=== PATIENT | female | born 1975 | race Caucasian/White ===

== ENCOUNTER 2017-01-01 08:55 | Inpatient (IN) | payer OTHER ==
[2017-01-01 09:38] LABS: Hematocrit 35.6 % (36.0-47.0); Mean Platelet Volume 8.3 fL (7.4-10.4); White Blood Cell (WBC) Count 6.6 thou/uL (4.8-10.8)
[2017-01-01 09:48] LABS: ALT (SGPT) 557 U/L (8-55); AST (SGOT) 1062 U/L (5-34); Alkaline Phosphatase 99 U/L (40-150); Anion Gap 18 mmol/L (10-20); BUN (Urea Nitrogen) 19 mg/dL (7.0-18.7); Bilirubin, Total 1.3 mg/dL (0.2-1.2); CK (CPK) 310 U/L (29-168); Calc. Creatinine Clearance 0 mL/min (70-130); Calcium 7.4 mg/dL (7.8-10.44); Carbon Dioxide 12 mmol/L (22-29); Chloride 102 mmol/L (98-107); Estimated GFR-MDRD 18; Globulin 2.2 g/dL (2.4-3.5); Protein, Total 5.3 g/dL (6.0-8.3)
--- NOTE | 2017-01-01 09:50 | RAD ---
PORTABLE CHEST 1 VIEW: Date: 01/01/17 Time: 0925 hours HISTORY: Fever, hypoxia, shortness of breath. FINDINGS/IMPRESSION: The heart size is borderline. There is elevation of the right hemidiaphragm. There is a small opacit y in the left lower lung. No pneumothoraces or pleural effusions are seen. A follow-up exam is recom mended in 2 weeks. POS: [facility]
[2017-01-01 09:52] LABS: Troponin I Less than 0.010 ng/mL (< 0.028)
[2017-01-01] MEDS ORDERED: Dextrose 50% Abboject 50 ML SYRINGE ONE (09:53)
[2017-01-01 09:56] LABS: Band 59 % (5-11); Metamyelocyte 8 % (0-0); Myelocyte 2 % (0-0); Neutrophil 22 % (42-75); Polychromasia SLIGHT = 2-3 cells (100X) (0-2/hpf); Vacuoles MODERATE
[2017-01-01] MEDS ORDERED: Norepinephrine 8 MG/0.9% NS 250 ML ONE (10:01)
[2017-01-01 10:22] LABS: Anion Gap 16 mmol/L (-14-95); T. Carbon Dioxide 13.1 mmol/L (1.0-85.0); pH (Venous) 7.159 (7.35-7.45); vO2 Saturation-calc 86.2 % (0.0-100.0)
[2017-01-01 10:36] LABS: Critical Call POC Critical Value; Lactate 5.57 mmol/L (0.50-2.20)
[2017-01-01 10:42] LABS: Oxyhemoglobin 95.4 % (94.0-97.0)
[2017-01-01 10:43] LABS: Modified Allen's Test NOT DONE; Sodium 128 mmol/L (135-148); Vent NO
--- NOTE | 2017-01-01 10:45 | CT ---
CT ABDOMEN NONCONTRAST CT PELVIS NONCONTRAST: (urolithiasis protocol) DATE: 01/01/2017 HISTORY: A 41-year-old female with fever, generalized abdominal pain, nausea, and emesis. COMPARISON: None. TECHNIQUE: IV injection of iodinated contrast media: none Oral contrast media: none FINDINGS: Other than for urolithiasis, the lack of IV and oral contrast limits the evaluation. There are streaky densities at the base of the right lower lobe, consistent with subsegmental atelec tasis. No pleural effusion, ascites, or pneumoperitoneum identified. There is an IUD. There is a 4 x 3 x 4 mm calculus at a left renal lower pole calyx. There are at least three smaller calculi at the contralateral right renal lower pole calyces. There is no hydroureteronephrosis. Within the l imitations of a noncontrast scan, no gross pathology is identified involving the abdominal aorta, th e spleen, or the urinary bladder. No signs of acute colonic diverticulitis. Diffusely slightly low hepatic attenuation is consistent with fatty liver. The pancreatic body and tail are unremarkable. The pancreatic head is somewhat difficult to evaluate without IV contrast. There is thickening of the adrenal glands bilaterally, consistent with hyperplasia. No small bowel dilation. The appendi x is located at midline and is normal. IMPRESSION: Bilateral nephrolithiasis without evidence of obstructive uropathy. SAMEER Bullock POS: [facility]
--- NOTE | 2017-01-01 11:04 | RAD ---
PORTABLE CHEST ONE VIEW: 01/01/2017 10:31 a.m. HISTORY: Fever. Central line placement. FINDINGS: There has been interval placement of a right internal jugular central line with the tip in the proje ction of the SVC since the earlier exam at 9:25 a.m. No pneumothoraces are seen. A plate of linear atelectasis versus scarring at the left lung base is again noted. There is continued elevation of the right hemidiaphragm. There is prominence of the interstitial markings. POS: [facility]
[2017-01-01] MEDS ORDERED: Piperacillin/Tazobactam 3.375 GM VIAL ONE (11:13)
[2017-01-01] MEDS ORDERED: Sodium Chloride 0.9% 100 ML ONE (11:14)
[2017-01-01 11:21] LABS: Bilirubin Moderate (Negative); Blood, Urine Negative (Negative); Glucose, Urine (Dipstick) Negative (Negative); Ketone, Urine Trace mg/dL (Negative); Nitrite Negative (Negative); Protein, Urine (Dipstick) 30 mg/dL (Neg-Trace)
[2017-01-01 11:24] LABS: Bacteria/HPF None Seen HPF (None Seen); RBC/HPF 0-3 HPF (0-3)
[2017-01-01 11:26] LABS: Hyaline Casts/LPF 0-3 HYALINE CAST LPF (0-3 Hyaline)
[2017-01-01 11:27] LABS: Yeast-All Forms None Seen HPF (None Seen)
[2017-01-01 11:33] LABS: Amphetamine Not Detected (NotDetected); Methadone Not Detected (NotDetected); Methamphetamine Detected (NotDetected)
[2017-01-01] MEDS ORDERED: Midazolam HCl 2 mg/2 ml Vial ONE (11:40)
[2017-01-01] MEDS ORDERED: Vecuronium 10 MG VIAL ONE (11:40)
[2017-01-01] MEDS ORDERED: Sterile Water 10 ML ONE (11:41)
[2017-01-01] MEDS ORDERED: Fentanyl 20 MCG/ML 250 ML ONE (11:50)
[2017-01-01 12:37] LABS: Lactic Acid - Sepsis 3.4 mmol/L (0.5-2.2)
[2017-01-01 12:41] LABS: Acetaminophen Less than 6.0 mcg/mL (10.0-30.0); Salicylate Less than 8.0 mg/dL (15.0-30.0)
[2017-01-01 13:05] LABS: Mechanical Tidal Volume 500 ml; Modified Allen's Test NOT DONE; Pressure Support 10 cmH2O; Sodium 130 mmol/L (135-148); Vent YES
[2017-01-01 13:06] LABS: Mode SIMV/PSV
[2017-01-01] MEDS: Sodium Chloride 0.9% 1,000 ML IV SCH ×2 (13:14→18:42)
[2017-01-01] MEDS ORDERED: Sedation Protocol FS ONE ×3 (13:18→13:21)
[2017-01-01] MEDS ORDERED: Sodium Bicarb 50 MEQ/50 ML Abboject 8.4% SYRINGE IVP SCH (13:30)
[2017-01-01] MEDS: Sodium Bicarbonate 150 MEQ in Dextrose 5% in Water 850 ML IV SCH ×4 (13:30→21:22)
[2017-01-01] MEDS ORDERED: Cefepime 2 GM, Admixture Fee 1 EACH in Sodium Chloride 0.9% 100 ML IVPB SCH (14:00)
[2017-01-01] MEDS ORDERED: Propofol 1,000 MG/100 ML VIAL IV PRN (14:11)
[2017-01-01] MEDS ORDERED: DISCONTINUE PREVIOUS NARCOTIC PAIN MEDICATIONS AND BENZODIAZEPINES FS SCH (14:11)
[2017-01-01] MEDS ORDERED: Midazolam HCl 2 mg/2 ml Vial SLOW IVP SCH (14:15)
[2017-01-01] MEDS ORDERED: Sodium Chloride 0.9% 2,000 ML IV SCH (14:15)
[2017-01-01] MEDS ORDERED: Norepinephrine 8 MG/250 ML BAG IVPB PRN (14:15)
[2017-01-01] MEDS ORDERED: Sodium Bicarb 50 MEQ/50 ML Abboject 8.4% SYRINGE ONE (14:20)
[2017-01-01] MEDS ORDERED: Vasopressin 40 UNIT, Admixture Fee 1 EACH in Sodium Chloride 0.9% 100 ML IV SCH (15:00)
[2017-01-01 15:28] LABS: Oxyhemoglobin 97.6 % (94.0-97.0)
[2017-01-01 15:29] LABS: Mechanical Tidal Volume 400 ml; Mode PSIMV; Modified Allen's Test NOT DONE; Pressure Support 10 cmH2O; Sodium 134 mmol/L (135-148); Vent YES
--- NOTE | 2017-01-01 16:19 | HP ---
DATE OF ADMISSION: 01/01/2017 ADMITTING PHYSICIAN: Farhan Dorman M.D. PRIMARY CARE PHYSICIAN: Unknown. CHIEF COMPLAINT: Fever. HISTORY OF PRESENT ILLNESS: The patient is a 41-year-old female that was brought in by EMS secondar y to being found in the field with a temperature of 106. The patient is currently intubated, I spok en to her mother, they reports approximately Sunday, the patient began to have URI symptoms. She was seen by another facility and treated empirically for viral syndrome. She had no chest pain or shortness of breath. There are positive report of abdominal pain with nausea and vomiting as well a s general malaise. REVIEW OF SYSTEMS: The following complete review of systems was negative, unless otherwise mentione d in the HPI or below: Constitutional: Weight loss or gain, sense of well-being, ability to conduct usual activities, exer cise tolerance. Skin/Breast: Rash, itching, changes in hair growth or loss, nail changes, breast lumps, tenderness, swelling, nipple discharge. Eyes: Vision, double vision, tearing, blind spots, pain. ENT/Mouth: Headaches (location, time of onset, duration, precipitating factors), vertigo, lightheadedness, injury. Vision, double vision, tearing, blind spots, pain, nose bleeding, colds, obstruction, discharge, dental difficulties, gingival bleeding, dentures, neck stif fness, pain, tenderness, masses in thyroid or other areas Cardiovascular: Precordial pain, substernal distress, palpitations, syncope, dyspnea on exertion, o rthopnea, nocturnal paroxysmal dyspnea, edema, cyanosis, hypertension, heart murmurs, varicosities, phlebitis, claudication. Respiratory: Pain, shortness of breath, wheezing, stridor, cough, hemoptysis, fever or night sweats Gastrointestinal: Poor appetite, dysphagia, indigestion, abdominal pain, heartburn, eructation, syeda sea, vomiting, hematemesis, jaundice, constipation, or diarrhea, abnormal stools (janie-colored, samson y, bloody, greasy, foul smelling), flatulence, hemorrhoids, recent changes in bowel habits. Genitourinary: Urgency, frequency, dysuria, nocturia, hematuria, polyuria, oliguria, unusual (or ch aisha in) color of urine, stones, hesitancy, change in size of stream, dribbling, acute retention or incontinence, libido, potency. Musculoskeletal: Pain, swelling, redness or heat of muscles or joints, limitation, of motion, muscular weakness, atrophy, cramps. Neurologic/Psychiatric: Convulsions, paralyses, tremor, incoordination, parasthesias, difficulties with memory of speech, sensory or motor disturbances, or muscular coordination (ataxia, tremor), emo tional problems, anxiety, depression, previous psychiatric care, unusual perceptions, hallucinations . Allergy/Immunologic: Skin rash, anemia, bleeding tendency, polydipsia, polyuria, intolerance to heat or cold. PAST MEDICAL HISTORY: Significant for mild mental retardation as well as migraines. FAMILY HISTORY: Noncontributory. SURGICAL HISTORY: Unknown. ALLERGIES: CIPRO and KEFLEX. HOME MEDICATIONS: Please see medication rec list. PHYSICAL EXAMINATION: VITAL SIGNS: Temperature 102.7, pulse 126, blood pressure 76/51, respirations 39, O2 sats 100% on m echanical ventilation. HEENT: Normocephalic, atraumatic, endotracheal tube is in place. EYES: PERRL. NECK: Supple. Full range of motion. CHEST: Coarse diminished. CARDIOVASCULAR: Sinus tachycardia. ABDOMEN: Tender. No distention. No mass. No peritoneal signs. EXTREMITIES: No clubbing, cyanosis or edema. LABORATORY DATA AND IMAGES: Showed lactic acid level of 3.4. PH on VBG of 7.15, pCO2 of 32, pO2 of 173 and that was arterial. Sodium of 130, potassium 3.7, chloride 103. Cortisol 29.8. C-reactive protein of 23.5. CBC shows a white count of 6.6, hemoglobin of 11.7, hematocrit 35.6, platelets 15 1,000, 59% bands. D-dimer greater than 20. Urinalysis dwight hazy, negative nitrite, negative leuko cyte, negative bacteria. U-tox positive for opiates, tricyclics, methamphetamine, benzodiazepine. Acute hepatitis panel was nonreactive. Chest x-ray shows linear atelectasis versus scarring at the left lung base with elevation of the right hemidiaphragm. Abdominal CT shows bilateral nephrolithia sis without evidence of obstructive uropathy. ASSESSMENT AND PLAN: 1. Sepsis. 2. Metabolic acidosis secondary to #1. PLAN: The patient admitted to the Critical Care Unit. She has been seen and assessed by Dr. Schwartz. She is currently intubated and being treated with Zosyn and vancomycin as well as Levaquin. The p xuan is requiring pressors at this time. She will be followed and treated accordingly in the [facility] care unit. We will follow along with the Critical Care Medicine Service.
[2017-01-01] MEDS ORDERED: Nystatin 100,000 Units/mL UDCUP SSW SCH (17:00)
[2017-01-01] MEDS: Pregabalin 75 MG CAP PO SCH ×2 (17:24→20:09)
[2017-01-01] MEDS: Albumin 25% 25 GM/100 ML BOT IVPB SCH ×2 (17:26→22:57)
--- NOTE | 2017-01-01 17:54 | OP ---
PROCEDURE: Fiberoptic intubation. The patient was awake with bite block placed in her mouth. Throat was sprayed with Cetacaine spray. Bronchoscope was introduced with her in the sitting position about 45 degrees. Vocal cords were e asily visualized and cannulated followed by 7.5 endotracheal tube which was secured above the stephen at 21 cm. Her tracheobronchial tree was erythematous. There was no purulent exudate in tracheobro nchial tree. Scope was withdrawn. She was connected to Ambu bag ventilation. PROCEDURE: Arterial line placement. Her right groin was prepped with Betadine and chlorhexidine. No pulse was palpable, but a good Dopp ler pulse was detectable. I was able to cannulate her femoral artery on the right with a 5-Mongolian i ntroducer needle, followed by a J-wire. A 5-Mongolian catheter was inserted and sewn in place x2. Goo d waveform has been obtained. She has been connected to an arterial pressure monitor. Sterile dres sing was applied.
--- NOTE | 2017-01-01 18:43 | RAD ---
ONE VIEW CHEST: History: Sepsis. Comparison: 01-01-17 at 10:31 a.m. FINDINGS: Portable single view chest re-demonstrates a right sided central venous catheter. Interval placement of endotracheal tube extending beyond the clavicles. Heart size is within normal limits. Lung volum es are diminished. Patchy interstitial opacity in the lung bases. No pneumothorax or osseous abnorma lity. IMPRESSION: 1. Interval placement of endotracheal tube. POS: [facility]
--- NOTE | 2017-01-01 19:43 | PRG ---
DATE OF SERVICE: 01/01/2017 Ms. Rowe's chest radiograph this afternoon has not shown any dense new alveolar infiltrate. She could have retrocardiac infiltrate or an infiltrate behind her diaphragm. She also has multip le excoriated areas on her hands and under her breasts that are according to her mother, a manifesta tion of her severe anxiety. These could be a point of entry for either strep or Staph. Antimicrobi al coverage should be adequate. Family said that she is allergic to CEPHALOSPORINS, this was not no jamison on admission. Even though the chance of a CEFEPIME reaction is small, we stopped that and place d her on a carbapenem. We will have to adjust for renal failure. Renal failure is likely and will likely need Nephrology input, starting tomorrow.
[2017-01-01] MEDS: Acetaminophen 325 MG TAB PO PRN (20:04)
[2017-01-01] MEDS: Meropenem 2 GM, Admixture Fee 1 EACH in Sodium Chloride 0.9% 100 ML IVPB SCH (20:23)
[2017-01-01] MEDS ORDERED: FLU VACC QS2017-18 36 mo. & older 0.5 ML SYRINGE IM ONE (21:00)
[2017-01-01] MEDS ORDERED: Benzocaine 20% Spray 60 ML CAN ONE (21:37)
[2017-01-01] MEDS: Vancomycin HCl 1 GM in Premix Bag 1 BAG IVPB SCH (22:57)
--- NOTE | 2017-01-02 00:49 | OP ---
PROCEDURE: Arterial line placement. METER/RELAY TECHNICIAN: Junito Schwartz MD INDICATION: Inadvertently dislodged right femoral A line. Left femoral area was cleansed with chlo rhexidine and Betadine. The femoral artery had been located with ultrasound. Again on this side, t here was no palpable pulse. First pass with a 5-English introducer needle, I was able to cannulate t he femoral artery. A wire was passed, catheter was inserted and sewn in place x2. Good waveform wa s obtained. Sterile dressing was applied.
[2017-01-02] MEDS: Sodium Bicarbonate 150 MEQ in Dextrose 5% in Water 850 ML IV SCH ×10 (02:53→20:02)
[2017-01-02] MEDS: Albumin 25% 25 GM/100 ML BOT IVPB SCH ×3 (04:16→17:57)
[2017-01-02] MEDS: Meropenem 2 GM, Admixture Fee 1 EACH in Sodium Chloride 0.9% 100 ML IVPB SCH ×2 (04:16→12:59)
[2017-01-02] MEDS: Acetaminophen 325 MG TAB PO PRN ×2 (04:34→13:03)
[2017-01-02 04:35] LABS: ALT (SGPT) 2572 U/L (8-55); Alkaline Phosphatase 70 U/L (40-150); Bilirubin, Direct 1.6 mg/dL (0.1-0.3); Protein, Total 4.5 g/dL (6.0-8.3)
[2017-01-02 04:40] LABS: Anion Gap 18 mmol/L (10-20); BUN (Urea Nitrogen) 31 mg/dL (7.0-18.7); Calc. Creatinine Clearance 33 mL/min (70-130); Calcium 5.7 mg/dL (7.8-10.44); Carbon Dioxide 17 mmol/L (22-29); Chloride 100 mmol/L (98-107); Estimated GFR-MDRD 17
[2017-01-02 04:41] LABS: AST (SGOT) Greater than 3500 U/L (5-34)
[2017-01-02 05:22] LABS: Band 19 % (5-11); Hematocrit 29.8 % (36.0-47.0); Mean Platelet Volume 9.7 fL (7.4-10.4); Metamyelocyte 1 % (0-0); Neutrophil 43 % (42-75); Red Blood Cell (RBC) Count 3.24 mill/uL (4.20-5.40); Tear Drops SLIGHT = 2-5 cells (100X) (0-1/hpf); White Blood Cell (WBC) Count 6.6 thou/uL (4.8-10.8)
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
[2017-01-02 08:00] LABS: Oxyhemoglobin 96.5 % (94.0-97.0); Sodium 133 mmol/L (135-148)
[2017-01-02 08:01] LABS: Mechanical Tidal Volume 400 ml; Mode SIMV.PSV; Modified Allen's Test NOT DONE; Pressure Support 10 cmH2O; Vent YES
--- NOTE | 2017-01-02 08:15 | RAD ---
PORTABLE SUPINE FRONTAL CHEST: Date: 01-02-17 Comparison: 01-01-17 History: Ventilated CCU patient. FINDINGS: Stable right sided vascular catheter, nasogastric tube, and endotracheal tube. Hazy airspace disease in right perihilar region. Supine imaging provided, limiting assessment for pleural fluid and pneum othorax. There is partial consolidation of left base with air bronchogram formation. IMPRESSION: Right perihilar density and left basilar partial consolidation. Stable lines and tubes. POS: [facility]
[2017-01-02] MEDS ORDERED: DULoxetine 60 MG CAP PO SCH (09:00)
[2017-01-02] MEDS: Pantoprazole 40 MG VIAL IVP SCH (09:01)
[2017-01-02] MEDS: Enoxaparin Sodium 30 MG/0.3 ML SYRINGE SC SCH (09:02)
[2017-01-02] MEDS: Pregabalin 75 MG CAP PO SCH ×2 (09:03→15:41)
[2017-01-02] MEDS: Vancomycin HCl 1 GM in Premix Bag 1 BAG IVPB SCH (11:24)
--- NOTE | 2017-01-02 13:14 | PDOC.PN ---
- Subjective Encounter Start Date: 01/02/17 Encounter Start Time: 13:12 Patient seen at bedside. Pressors have been transiently weaned. However, her BP dropped thereafter and required IV Bolus - Objective MAR Reviewed: Yes Vital Signs & Weight: Vital Signs (12 hours) Temp Pulse Resp BP Pulse Ox 01/02/17 10:28 103 H 107/68 01/02/17 10:26 101 H 30 H 92 L 01/02/17 10:00 30 H 01/02/17 08:00 99.9 F H 103 H 30 H 93 L 01/02/17 07:05 98 117/71 01/02/17 07:02 97 30 H 01/02/17 06:00 30 H 01/02/17 05:00 99.1 F 01/02/17 04:00 100.1 F H 30 H 01/02/17 02:32 102 H 30 H 01/02/17 02:00 30 H Weight Admit Weight 197 lb Weight 197 lb 1.492 oz Most Recent Monitor Data Heart Rate from ECG 106 NIBP 83/46 NIBP BP-Mean 56 Respiration from ECG 0 SpO2 91 I&O: 01/01/17 01/02/17 01/03/17 06:59 06:59 06:59 Intake Total 8206.4 400 Output Total 302 160 Balance 7904.4 240 Result Diagrams: 01/02/17 04:02 01/02/17 04:02 Additional Labs: Accuchecks 01/02/17 01/02/17 01/01/17 10:50 04:00 22:17 POC Glucose 202 H 218 H 131 H 01/01/17 18:57 POC Glucose 113 H Phys Exam - Physical Examination Constitutional: NAD Intubated, Sedated ET Tube in place mild rhonchi Cardiovascular: RRR Gastrointestinal: soft Musculoskeletal: pulses present Neurological: moves all 4 limbs Dx/Plan (1) Acute respiratory failure Code(s): J96.00 - ACUTE RESPIRATORY FAILURE, UNSP W HYPOXIA OR HYPERCAPNIA Status: Acute (2) Metabolic acidosis Code(s): E87.2 - ACIDOSIS Status: Acute (3) Sepsis Code(s): A41.9 - SEPSIS, UNSPECIFIED ORGANISM Status: Acute (4) Acute kidney failure Status: Acute (5) Transaminitis Code(s): R74.0 - NONSPEC ELEV OF LEVELS OF TRANSAMNS & LACTIC ACID DEHYDRGNSE Status: Acute - Plan cont current plan of care, lord catheter, continue antibiotics, respiratory therapy, DVT proph w/lovenox * Ventilator management per PCCM * Continue with broad spectrum antibiotics. * Continue with hemodynamic support ( will restart pressors as needed, begin with aggressive IV fluid resuscitation) * Monitor LFTs- Shock liver * IV Fluids resuscitation- Monitor Kidney function and urine output- if no significant improvement will likely require nephrology evaluation. * Steroids * Daily labs
[2017-01-02] MEDS: Lacri-Lube Opth Oint 3.5 GM TUBE EA EYE PRN (14:17)
[2017-01-02] MEDS ORDERED: Sodium Chloride 0.9% 1,000 ML IV SCH (14:30)
[2017-01-02] MEDS ORDERED: Calcium Chloride 1 GM/10 ML Abboject SYRINGE IVP SCH (15:45)
[2017-01-02] MEDS ORDERED: Vancomycin HCl 1 GM in Premix Bag 1 BAG IVPB SCH (16:00)
--- NOTE | 2017-01-02 21:33 | PRG ---
DATE OF SERVICE: 01/02/2017 SUBJECTIVE: Ms. Loren Rowe improved overnight. Her pressor requirements were down to almo st nothing this morning. Her Levophed and her vasopressin were discontinued. Unfortunately, she de veloped ischemic fingers. Her toes surprisingly are not; the tip of her nose is. Her lungs are clear anteriorly. Heart, regular rhythm. Abdomen is soft. She is sedated for ventilation. Heart rate is 104. Blood pressure dropped into the 70s this afternoon, so low-dose Levophed has bee n restarted. Blood pressure is now up into the 80s. LABORATORY DATA: White count 6.6, hemoglobin 10.3 and platelets 64. Her band count is down from 59 % to 90%. Metamyelocytes are down from 8% to 1%. Sodium 132, potassium 3.2, chloride 100, bicarbon ate 17, BUN 31, creatinine 3, glucose 189, calcium is 5.7, albumin is 3.1, total protein is 4.5 whic h probably explains her low calcium. Her pH on her blood gas is 7.4, CO2 is 20, pO2 is 100 and ioni zed calcium was 0.7, so she will receive some calcium. I suspect the source is her lungs, but still her skin is a possibility. Chest radiograph today show s bibasilar patchy infiltrates. Blood cultures are negative so far. IMPRESSION AND PLAN: 1. Clinical sepsis, most likely associated with pneumonia. 2. Ischemic fingers secondary to pressors. I met with the mother and the sister and explained that there is really no treatment for this other than hydration and withdrawal of pressors. We will see if giving her some calcium leads to improvement in her blood pressure. Will continue broad antimic robial coverage for now, probably cut her vancomycin to once a day. Critical care time 50 minutes with multiple exams so far today.
[2017-01-03] MEDS: Albumin 25% 25 GM/100 ML BOT IVPB SCH ×4 (00:05→17:45)
[2017-01-03] MEDS: Lacri-Lube Opth Oint 3.5 GM TUBE EA EYE PRN (00:08)
[2017-01-03] MEDS: Meropenem 1 GM, Admixture Fee 1 EACH in Sodium Chloride 0.9% 100 ML IVPB SCH ×2 (01:16→14:30)
[2017-01-03] MEDS: Sodium Bicarbonate 150 MEQ in Dextrose 5% in Water 850 ML IV SCH ×6 (01:17→12:43)
[2017-01-03 05:27] LABS: Band 4 % (5-11); Hematocrit 26.6 % (36.0-47.0); Mean Platelet Volume 9.5 fL (7.4-10.4); Neutrophil 68 % (42-75); Red Blood Cell (RBC) Count 2.94 mill/uL (4.20-5.40); White Blood Cell (WBC) Count 11.9 thou/uL (4.8-10.8)
[2017-01-03 05:29] LABS: Anion Gap 19 mmol/L (10-20); BUN (Urea Nitrogen) 40 mg/dL (7.0-18.7); Calc. Creatinine Clearance 33 mL/min (70-130); Carbon Dioxide 27 mmol/L (22-29); Chloride 91 mmol/L (98-107); Estimated GFR-MDRD 15
[2017-01-03 05:31] LABS: ALT (SGPT) 1464 U/L (8-55); AST (SGOT) 2408 U/L (5-34); Alkaline Phosphatase 73 U/L (40-150); Bilirubin, Direct 1.2 mg/dL (0.1-0.3); Bilirubin, Total 1.7 mg/dL (0.2-1.2); Protein, Total 4.8 g/dL (6.0-8.3)
[2017-01-03 05:40] LABS: Calcium 5.9 mg/dL (7.8-10.44)
[2017-01-03] MEDS ORDERED: Potassium Chloride 40 MEQ in Premix Bag 1 BAG IVPB SCH (06:30)
[2017-01-03] MEDS ORDERED: Potassium Chloride 40 MEQ in Sodium Chloride 0.9% 250 ML 250 ML IVPB SCH (07:00)
[2017-01-03 07:42] LABS: Oxyhemoglobin 91.6 % (94.0-97.0)
[2017-01-03 07:43] LABS: Mechanical Tidal Volume 400 ml; Mode SIMV; Pressure Support 10 cmH2O; Sodium 132 mmol/L (135-148); Vent YES
[2017-01-03] MEDS: Pantoprazole 40 MG VIAL IVP SCH (08:50)
--- NOTE | 2017-01-03 08:54 | RAD ---
PORTABLE CHEST ONE VIEW: Date: 01-03-17 Time: 5:59 a.m. History: Respiratory failure. FINDINGS/IMPRESSION: No significant interval change is seen since the previous day's exam. POS: [facility]
[2017-01-03] MEDS ORDERED: Vancomycin HCl 1 GM in Premix Bag 1 BAG IVPB SCH (11:00)
[2017-01-03] MEDS: Enoxaparin Sodium 30 MG/0.3 ML SYRINGE SC SCH (12:43)
[2017-01-03] MEDS: Sodium Chloride 0.45% 1,000 ML IV SCH (14:30)
--- NOTE | 2017-01-03 14:53 | PDOC.PN ---
- Subjective Encounter Start Date: 01/03/17 Encounter Start Time: 14:50 Patient seen at bedside. No overnight events. - Objective MAR Reviewed: Yes Vital Signs & Weight: Vital Signs (12 hours) Temp Pulse Resp Pulse Ox 01/03/17 14:00 18 01/03/17 13:25 96 01/03/17 12:00 99.8 F H 21 H 01/03/17 11:07 101 H 01/03/17 11:04 100 18 93 L 01/03/17 10:00 24 H 01/03/17 08:00 100.3 F H 103 H 21 H 92 L 01/03/17 07:14 106 H 01/03/17 06:00 26 H 01/03/17 04:00 26 H 01/03/17 03:00 99.8 F H Weight Admit Weight 197 lb Weight 201 lb 11.567 oz Most Recent Monitor Data Heart Rate from ECG 93 NIBP 123/78 NIBP BP-Mean 92 Respiration from ECG 24 SpO2 88 I&O: 01/02/17 01/03/17 01/04/17 06:59 06:59 06:59 Intake Total 8206.4 5913.4 1296 Output Total 302 880 495 Balance 7904.4 5033.4 801 Result Diagrams: 01/03/17 04:40 01/03/17 11:38 Additional Labs: Accuchecks 01/03/17 01/03/17 01/03/17 10:40 04:49 00:13 POC Glucose 146 H 159 H 137 H 01/02/17 16:32 POC Glucose 178 H Phys Exam - Physical Examination Constitutional: NAD HEENT: moist MMs ET Tube in place Neck: no JVD mild rhonchi Cardiovascular: RRR Gastrointestinal: soft Musculoskeletal: pulses present Deviation from normal: finger mottling Dx/Plan (1) Acute respiratory failure Code(s): J96.00 - ACUTE RESPIRATORY FAILURE, UNSP W HYPOXIA OR HYPERCAPNIA Status: Acute (2) Metabolic acidosis Code(s): E87.2 - ACIDOSIS Status: Acute (3) Sepsis Code(s): A41.9 - SEPSIS, UNSPECIFIED ORGANISM Status: Suspected (4) Acute kidney failure Status: Acute (5) Transaminitis Code(s): R74.0 - NONSPEC ELEV OF LEVELS OF TRANSAMNS & LACTIC ACID DEHYDRGNSE Status: Acute - Plan cont current plan of care, continue antibiotics, respiratory therapy, DVT proph w/lovenox * Ventilator management per PCCM. * Continue IV Abx * Replete Electrolytes * Monitor Renal function and urine output. * Trend LFTs- Transaminitis is likely from shock liver. * wound care * Supportive care
--- NOTE | 2017-01-03 16:09 | PRG ---
DATE OF SERVICE: 01/03/2017 SUBJECTIVE: Ms. Rowe is off pressors and has been off pressors now for a while. Her right hand looks much better compared to yesterday. Her left hand looks better than yesterday, but is not as good as I would like. Her toes are still dusky, but I do not think she will have infa rctions of her lower extremity digits. Her nose tip is still dusky. OBJECTIVE: VITAL SIGNS: Blood pressure has been in the 120-130s today, she is currently 126/79, heart rate 92, respiratory rates in the teens, her mechanical ventilation was turned down as she is developing an alkalosis. I suspect her potassium will shift back out of the cell once her pH drops. She has coar se equal breath sounds. HEART: Regular rhythm. ABDOMEN: Soft. EXTREMITIES: Without asymmetry. LABORATORY DATA: Chest radiograph shows no change than yesterday and today tubes are in proper posi tions. White count 11.9, hemoglobin 9.3, platelets 63,000. Sodium 134, potassium 2.5, chloride 91, bicarbonate 27, BUN 40, creatinine 3.31. IMPRESSION: Sepsis. Culture negative. She has excoriations on her hands where she nervously picks at her skin. I doubt this is toxic shock syndrome, but I am surprised her blood cultures are posit shane. With the pulmonary infiltrates it very easily could be pneumococcal pneumonia. Given her prodrome, it sounded like a viral illness. Her thrombocytopenia is not likely to be heparin induced, so more likely to be related to her sepsis . We will continue with Lovenox. Her hypokalemia should improve with a change in her pH. Her hypocalcemia is most likely secondary t o low protein levels. Her liver enzyme elevations have increased. I suspect this is all secondary to sepsis. We will donato nd these and if they continue to go up, we will consult Gastroenterology. Met with the family and a nswered all their questions. Critical care time was 30 minutes.
[2017-01-03] MEDS: Fentanyl 20 MCG/ML 250 ML IVPB SCH (17:45)
[2017-01-03] MEDS: Lorazepam 2 MG/ML VIAL SLOW IVP PRN (19:12)
[2017-01-04] MEDS: Meropenem 1 GM, Admixture Fee 1 EACH in Sodium Chloride 0.9% 100 ML IVPB SCH ×2 (01:45→14:22)
[2017-01-04] MEDS: Lorazepam 2 MG/ML VIAL SLOW IVP PRN ×4 (02:16→22:22)
[2017-01-04 05:49] LABS: Anion Gap 14 mmol/L (10-20); BUN (Urea Nitrogen) 46 mg/dL (7.0-18.7); Calc. Creatinine Clearance 29 mL/min (70-130); Carbon Dioxide 33 mmol/L (22-29); Chloride 91 mmol/L (98-107); Estimated GFR-MDRD 14
[2017-01-04 05:51] LABS: Band 8 % (5-11); Hematocrit 27.6 % (36.0-47.0); Mean Platelet Volume 10.2 fL (7.4-10.4); Neutrophil 79 % (42-75); Nucleated RBC 1 % (0); Red Blood Cell (RBC) Count 3.01 mill/uL (4.20-5.40); White Blood Cell (WBC) Count 17.5 thou/uL (4.8-10.8)
[2017-01-04 06:23] LABS: Calcium 5.6 mg/dL (7.8-10.44)
[2017-01-04] MEDS ORDERED: Potassium Chloride 40 MEQ in Premix Bag 1 BAG IVPB SCH (06:45)
[2017-01-04] MEDS ORDERED: Calcium Gluc 4.6 MEQ/10 ML (100 MG/ML) SLOW IVP SCH (06:45)
[2017-01-04 07:01] LABS: Magnesium 1.4 mg/dL (1.6-2.6)
[2017-01-04 07:32] LABS: Sodium 136 mmol/L (135-148)
[2017-01-04] MEDS ORDERED: Sterile Water 10 ML ONE ×3 (07:37→15:08)
[2017-01-04] MEDS: Sodium Chloride 0.45% 1,000 ML IV SCH ×2 (07:42→21:03)
[2017-01-04] MEDS ORDERED: Vecuronium 10 MG VIAL IVP SCH (07:45)
[2017-01-04] MEDS: Enoxaparin Sodium 30 MG/0.3 ML SYRINGE SC SCH (07:51)
[2017-01-04] MEDS: Pantoprazole 40 MG VIAL IVP SCH (07:51)
--- NOTE | 2017-01-04 08:44 | RAD ---
PORTABLE CHEST: History: Dyspnea. CCU follow up. Comparison: 01-03-17 FINDINGS/IMPRESSION: ET tube, NG tube, central line unchanged. Bibasilar opacification is again noted consistent with froilan ateral effusions and bibasilar atelectasis and/or infiltrate. No significant change from yesterday. POS: [facility]
[2017-01-04] MEDS: Vecuronium 10 MG VIAL IVP PRN ×2 (11:53→15:09)
--- NOTE | 2017-01-04 11:57 | PDOC.PN ---
- Subjective Encounter Start Date: 01/04/17 Encounter Start Time: 11:54 Patient seen at bedside. This morning was agitated, was given paralytics. Febrile overnight (101.4) - Objective MAR Reviewed: Yes Vital Signs & Weight: Vital Signs (12 hours) Temp Pulse Resp BP Pulse Ox 01/04/17 11:14 103 H 111/69 01/04/17 11:05 102 H 18 90 L 01/04/17 10:00 18 01/04/17 08:00 101.4 F H 01/04/17 07:53 91 120/75 01/04/17 07:52 92 18 90 L 01/04/17 06:00 18 01/04/17 04:00 18 01/04/17 03:00 99.7 F H 01/04/17 02:26 93 18 91 L 01/04/17 02:00 18 01/04/17 00:00 18 Weight Admit Weight 197 lb Weight 202 lb 6.15 oz Most Recent Monitor Data Heart Rate from ECG 107 NIBP 122/77 NIBP BP-Mean 92 Respiration from ECG 9 SpO2 89 I&O: 01/03/17 01/04/17 01/05/17 06:59 06:59 06:59 Intake Total 5913.4 2875 Output Total 880 1655 275 Balance 5033.4 1220 -275 Result Diagrams: 01/04/17 05:05 01/04/17 05:05 Additional Labs: Accuchecks 01/04/17 01/04/17 01/03/17 05:16 00:07 16:00 POC Glucose 110 113 H 116 H Phys Exam - Physical Examination Constitutional: NAD ET Tube in place coarse breath sounds bilaterally Cardiovascular: RRR Gastrointestinal: soft Musculoskeletal: pulses present Deviation from normal: excorations on hands bilaterally. Dx/Plan (1) Acute respiratory failure Code(s): J96.00 - ACUTE RESPIRATORY FAILURE, UNSP W HYPOXIA OR HYPERCAPNIA Status: Acute (2) Metabolic acidosis Code(s): E87.2 - ACIDOSIS Status: Acute (3) Sepsis Code(s): A41.9 - SEPSIS, UNSPECIFIED ORGANISM Status: Suspected (4) Acute kidney failure Status: Acute (5) Transaminitis Code(s): R74.0 - NONSPEC ELEV OF LEVELS OF TRANSAMNS & LACTIC ACID DEHYDRGNSE Status: Acute (6) Thrombocytopenia Code(s): D69.6 - THROMBOCYTOPENIA, UNSPECIFIED Status: Acute - Plan cont current plan of care, continue antibiotics, respiratory therapy, DVT proph w/lovenox * Mechanical ventilation per [facility]. * Continue with Meropenem * Monitor renal function (still making urine. acidosis is improving)-Most likely from septic process vs Vancomycin (less likely, but discontinued). If no improvement, may require a nephrology consultation * Thrombocytopenia- monitor, no acute bleeding noticed. Renal vs Liver etiology * Trend LFTs- Check in AM * Given fever and increase in wbc (steroids?), reculture * Daily Labs * Replete Magnesium (1 gm), Potassium, Calcium
--- NOTE | 2017-01-04 12:15 | PRG ---
DATE OF SERVICE: 01/04/2017 SUBJECTIVE: Ms. Rowe is sedated for ventilation. She is a little light this morning was g runting and we could not ventilate her, so we had to mechanically paralyze her. OBJECTIVE: VITAL SIGNS: Heart rate is 90, blood pressure 125/74, respiratory rates in the teens, her minute vo lume is about 9 liters a minute. LUNGS: Clear anteriorly. HEART: Regular rhythm. ABDOMEN: Soft. EXTREMITIES: Her left hand looks a little better today. The remainder of her extremities are essen tially unchanged. Wound care will see her for left handed today. LABORATORY DATA: White count is 17.5, hemoglobin 9.6, platelets 62,000. Sodium 135, potassium 2.6, chloride 91, bicarbonate 33, BUN 46, creatinine 3.71. Blood gas is not in the computer yet. Intak e and output is positive 1220. IMPRESSION AND PLAN: Respiratory failure associated with clinical sepsis. Blood cultures remain ne gative. I reviewed her CAT scan with Urology several days back and they did not feel that she had a n obstructive nephropathy based on the CT findings. Chest radiograph still shows bilateral effusion s and bilateral infiltrates. I still believe that this is pneumonia with systemic inflammatory resp onse. Hopefully, her renal function will plateau. I will replace her magnesium today, but not her potassi um given her slowly declining renal function. Her renal urinary output has improved over the last f ew days, but she still has significant intrinsic renal dysfunction associated with this illness.
[2017-01-04 12:58] LABS: Mechanical Tidal Volume 450 ml; Mode SIMV.PSV; Modified Allen's Test NOT DONE; Pressure Support 10 cmH2O; Vent YES
[2017-01-04] MEDS ORDERED: Pancrelipase DR 12000 1 CAP FS PRN (15:27)
[2017-01-04] MEDS ORDERED: Sodium Bicarbonate Tab 325 MG TAB PER TUBE PRN (15:27)
[2017-01-04] MEDS: Acetaminophen 325 MG TAB PO PRN (17:40)
[2017-01-04] MEDS: Lacri-Lube Opth Oint 3.5 GM TUBE EA EYE PRN (21:07)
[2017-01-05] MEDS: Meropenem 1 GM, Admixture Fee 1 EACH in Sodium Chloride 0.9% 100 ML IVPB SCH ×2 (02:45→14:16)
[2017-01-05] MEDS: Vecuronium 10 MG VIAL IVP PRN (02:53)
[2017-01-05 05:44] LABS: ALT (SGPT) 524 U/L (8-55); AST (SGOT) 396 U/L (5-34); Alkaline Phosphatase 158 U/L (40-150); Bilirubin, Direct 2.1 mg/dL (0.1-0.3); Bilirubin, Total 2.9 mg/dL (0.2-1.2); Protein, Total 4.7 g/dL (6.0-8.3)
[2017-01-05 05:45] LABS: Band 6 % (5-11); Hematocrit 28.5 % (36.0-47.0); Mean Platelet Volume 11.6 fL (7.4-10.4); Neutrophil 87 % (42-75); Nucleated RBC 2 % (0); Red Blood Cell (RBC) Count 3.01 mill/uL (4.20-5.40); Vacuoles MODERATE; White Blood Cell (WBC) Count 12.4 thou/uL (4.8-10.8)
[2017-01-05 05:48] LABS: ALT (SGPT) 517 U/L (8-55); AST (SGOT) 389 U/L (5-34); Alkaline Phosphatase 130 U/L (40-150); Anion Gap 16 mmol/L (10-20); BUN (Urea Nitrogen) 56 mg/dL (7.0-18.7); Bilirubin, Total 2.7 mg/dL (0.2-1.2); Calc. Creatinine Clearance 26 mL/min (70-130); Carbon Dioxide 29 mmol/L (22-29); Chloride 94 mmol/L (98-107); Estimated GFR-MDRD 12; Globulin 1.6 g/dL (2.4-3.5); Protein, Total 4.7 g/dL (6.0-8.3)
[2017-01-05 05:52] LABS: Calcium 5.7 mg/dL (7.8-10.44)
[2017-01-05 07:31] LABS: Modified Allen's Test POSITIVE; Oxyhemoglobin 89.3 % (94.0-97.0); PIP 26 cmH2O; Sodium 134 mmol/L (135-148); Vent YES
[2017-01-05 07:32] LABS: Mode BILEVEL; Pressure Support 10 cmH2O
--- NOTE | 2017-01-05 08:54 | RAD ---
PORTABLE CHEST 1 VIEW: Date: 01/05/17 Time: 0502 hours HISTORY: Respiratory failure. FINDINGS/IMPRESSION: Comparison made with exam from previous day. Allowing for differences in technique, no significant interval changes are identified. POS: [facility]
[2017-01-05] MEDS: Enoxaparin Sodium 30 MG/0.3 ML SYRINGE SC SCH (10:05)
[2017-01-05] MEDS: Pantoprazole 40 MG GRANULES PACKET PER TUBE SCH (10:05)
[2017-01-05] MEDS: Lorazepam 2 MG/ML VIAL SLOW IVP PRN ×2 (11:34→15:33)
--- NOTE | 2017-01-05 13:31 | PRG ---
DATE OF SERVICE: 01/05/2017 SUBJECTIVE: Ms. Rowe remains hemodynamically stable. Her left hand digits have sloughed s ome skin. Her fingers on both hands are warm and her toes are all warm. She does have skin discolo ration distally in both hands and feet, it is patchy. OBJECTIVE: VITAL SIGNS: She is afebrile, heart rate is 83, respiratory rate 18, blood pressure 132/78. LUNGS: Clear. HEART: Regular rhythm. ABDOMEN: Soft. LABORATORY DATA: White count 12.4, hemoglobin 9.6, platelets 37,000. Sodium 136, potassium 3.6, ch loride 94, bicarbonate 29, BUN 56, creatinine 4.1. IMPRESSION: 1. Clinical sepsis, stable. 2. Thrombocytopenia associated with sepsis. I do not believe she has heparin-induced thrombocytope [place]. Her heparin will be held for now. 2. Acute renal failure secondary to tubular necrosis associated with her sepsis. 3. Volume overload. At this point, she can be diuresed with declining renal function. 4. History of severe anxiety with cutaneous excoriations from her scratching. PLAN: Continue supportive care. I met with family and answered all their questions. Nephrology wi ll be consulted.
--- NOTE | 2017-01-05 15:03 | PDOC.PN ---
- Subjective Encounter Start Date: 01/05/17 Encounter Start Time: 15:00 -: non-verbal Subjective: Patient intubated. Arousable, not following commands. - Objective MAR Reviewed: Yes Vital Signs & Weight: Vital Signs (12 hours) Temp Pulse Resp BP Pulse Ox 01/05/17 14:22 113 H 123/72 01/05/17 14:19 118 H 21 H 92 L 01/05/17 14:00 17 01/05/17 12:00 19 01/05/17 11:00 98.7 F 01/05/17 10:44 93 132/78 01/05/17 10:43 92 18 92 L 01/05/17 10:00 18 01/05/17 08:00 98.9 F 98 18 90 L 01/05/17 07:00 98.9 F 01/05/17 06:52 91 133/71 01/05/17 06:49 92 18 91 L 01/05/17 06:00 18 01/05/17 04:00 99.4 F 18 Weight Admit Weight 197 lb Weight 202 lb 13.204 oz Most Recent Monitor Data Heart Rate from ECG 85 NIBP 123/72 NIBP BP-Mean 90 Respiration from ECG 2 SpO2 93 I&O: 01/04/17 01/05/17 01/06/17 06:59 06:59 06:59 Intake Total 2875 2138 40 Output Total 1655 1190 375 Balance 1220 948 -335 Result Diagrams: 01/05/17 05:00 01/05/17 05:00 Additional Labs: Accuchecks 01/05/17 01/04/17 01/04/17 10:25 16:35 11:16 POC Glucose 183 H 114 H 110 Phys Exam - Physical Examination Intubated HEENT: PERRLA, moist MMs Neck: no nodes, no JVD coarse breath sounds bilaterally, decent air movement on vent Cardiovascular: RRR Gastrointestinal: soft Neurological: moves all 4 limbs Deviation from normal: purpura and skin dicoloration/ischemia of digits/distal feet/hands, tip of -: nose, scattered on extremities Dx/Plan (1) Sepsis Code(s): A41.9 - SEPSIS, UNSPECIFIED ORGANISM Status: Acute (2) Acute respiratory failure Code(s): J96.00 - ACUTE RESPIRATORY FAILURE, UNSP W HYPOXIA OR HYPERCAPNIA Status: Acute Comment: On mechanical ventilation (3) Acute kidney failure Status: Acute Comment: Renal consultation (4) Thrombocytopenia Code(s): D69.6 - THROMBOCYTOPENIA, UNSPECIFIED Status: Acute Comment: secondary to sepsis (5) Volume overload Code(s): E87.70 - FLUID OVERLOAD, UNSPECIFIED Status: Acute Comment: secondary to rescusitation for sepsis and renal failure (6) Transaminitis Code(s): R74.0 - NONSPEC ELEV OF LEVELS OF TRANSAMNS & LACTIC ACID DEHYDRGNSE Status: Acute Comment: due to sepsis, markedly improved (7) Hypokalemia Code(s): E87.6 - HYPOKALEMIA Status: Acute Comment: replace per ICU protocol - Plan cont current plan of care, continue antibiotics * . - Discharge Day Encounter end time: 16:00
[2017-01-05] MEDS: Fentanyl 20 MCG/ML 250 ML IVPB SCH (15:33)
[2017-01-05] MEDS ORDERED: Potassium Chloride 40 MEQ in Premix Bag 1 BAG IVPB SCH (17:00)
[2017-01-05] MEDS ORDERED: Furosemide 40 MG/4 ML VIAL SLOW IVP SCH (17:00)
[2017-01-05 17:44] LABS: Bilirubin Negative (Negative); Blood, Urine Large (Negative); Glucose, Urine (Dipstick) Negative (Negative); Ketone, Urine Negative (Negative); Nitrite Negative (Negative); Protein, Urine (Dipstick) 100 mg/dL (Neg-Trace); Urobilinogen 0.2 mg/dL (0.2-1.0)
[2017-01-06] MEDS: Meropenem 1 GM, Admixture Fee 1 EACH in Sodium Chloride 0.9% 100 ML IVPB SCH ×2 (02:00→13:36)
[2017-01-06] MEDS: Lorazepam 2 MG/ML VIAL SLOW IVP PRN ×3 (03:20→20:41)
[2017-01-06 05:05] LABS: Anion Gap 16 mmol/L (10-20); BUN (Urea Nitrogen) 63 mg/dL (7.0-18.7); BUN/Creatinine Ratio 14.65; Calc. Creatinine Clearance 25 mL/min (70-130); Calcium 6.2 mg/dL (7.8-10.44); Carbon Dioxide 28 mmol/L (22-29); Chloride 96 mmol/L (98-107); Estimated GFR-MDRD 11; Phosphorus 3.9 mg/dL (2.3-4.7)
[2017-01-06 05:09] LABS: Band 8 % (5-11); Hematocrit 29.3 % (36.0-47.0); Mean Platelet Volume 11.9 fL (7.4-10.4); Neutrophil 80 % (42-75); Nucleated RBC 2 % (0); Red Blood Cell (RBC) Count 3.07 mill/uL (4.20-5.40); White Blood Cell (WBC) Count 11.6 thou/uL (4.8-10.8)
[2017-01-06] MEDS: Vecuronium 10 MG VIAL IVP PRN ×4 (06:02→23:00)
[2017-01-06 07:27] LABS: Oxyhemoglobin 96.2 % (94.0-97.0); Sodium 134 mmol/L (135-148)
[2017-01-06 07:28] LABS: Mechanical Tidal Volume 488 ml; Mode BL 24/10; Modified Allen's Test POSITIVE; PIP 24 cmH2O; Pressure Support 10 cmH2O; Vent YES
[2017-01-06] MEDS ORDERED: Furosemide 100 MG/10 ML VIAL SLOW IVP SCH (07:45)
[2017-01-06] MEDS ORDERED: Potassium Chloride 40 MEQ in Premix Bag 1 BAG IVPB SCH (07:45)
--- NOTE | 2017-01-06 07:48 | CON ---
DATE OF CONSULTATION: 01/05/2017 CONSULTING PHYSICIAN: Yudy Page M.D. REQUESTING PHYSICIAN: Dr. Amando Cleary with the Hospitalist program. REASON FOR CONSULTATION: Worsening renal failure. IMPRESSION: 1. Acute kidney injury. This is likely cytokine and hemodynamically mediated nonoliguric acute tub ular necrosis in the context of sepsis. 2. Hypokalemia. 3. Hypocalcemia. 4. Severe thrombocytopenia, query cause. This is likely the consumption of severe sepsis; however, heparin induced thrombocytopenia, not completely ruled out. phenomenon is less likely. 5. Respiratory failure, ventilator dependent. This is likely in the context of sepsis. 6. Hypovolemia, plus or minus incipient acute respiratory distress syndrome. 7. Respiratory alkalosis management as per the Pulmonary and Critical Care team. PLAN: 1. I did have extended discussion with the family to let them how severe this patient's clinical co ndition is. I did make it very clear to them. At this point, there is no emergent indication for r enal replacement therapy (hemodialysis); however, if the patient continues in this trajectory, this modality of treatment might become indicated especially if patient becomes uremic and unable to resp ond to medical diuresis, especially in the context of acute respiratory distress syndrome, ultrafilt ration with hemodialysis become the modality of approach. 2. Renally dose all medications per low GFR and avoid every potentially nephrotoxic agents. 3. In as much as heparin induced thrombocytopenia that not being confirmed, they need to be prudent to withdraw all heparin products at this point. 4. Replete potassium, especially as the patient is going to be requiring p.r.n. diuresis. 5. We will go ahead and give this patient loop diuretic and hold the intravenous fluids for now, ma intaining this patient on only . 6. Renal function evaluate the degree of hyperphosphatemia in this patient. We will also lacho ck the parathyroid hormone. 7. Further management to be dependent on the clinical course. HISTORY OF PRESENT ILLNESS: History is that of a 41-year-old female patient who was found down and brought to the ER, and was diagnosed with sepsis, required pressors to maintain hemodynamics and sev eral liters of IV fluid resuscitation. The patient over the course of hospitalization has continued to deteriorate clinical bah. At this time of dictation, the patient's renal function is progressi vely getting worse, thus the need for renal consultation. On close observation, this patient has be en noted worsening thrombocytopenia with multiple extremities as well as electrolyte derangements in the way of hypokalemia, hypocalcemia, and possibly hyperphosphatemia. The patient is overtly fluid overloaded and some difficulties being encountered at this point to ventilate this patient who yolande ined hypoxic, requiring increased oxygenation. As a result of the constellation of these findings, the decision has been taken to involve Renal in the management of this case. PAST MEDICAL HISTORY: Significant for mental retardation, migraine as per medical record. FAMILY HISTORY: Could not get any family history of kidney disease. ALLERGIES: CIPRO and KEFLEX. MEDICATIONS: As listed on [employer]. REVIEW OF SYSTEMS: Could not be obtained from this patient who is currently intubated. LABORATORY DATA: Laboratory investigation is more or less as documented in the body of the history. Significant for potassium of 2.6, creatinine of 4.14 with BUN of 56, calcium 5.7, albumin is 3.2. Blood gas showed a pH of 7.50 with pO2 of 55. PHYSICAL EXAMINATION: GENERAL: The patient was found to be critically ill, sedated and intubated, not following any comma nd, noted with following vital signs. VITAL SIGNS: Blood pressure 132/88, heart rate of 96, respiratory rate of 13, O2 sat of 95%. HEENT: Unremarkable for endotracheal tube in place with some bruises and ecchymosis over the nostri l. CARDIOVASCULAR SYSTEM: First and second heart sounds were heard. RESPIRATORY SYSTEM: Revealed vented sounds. DIGESTIVE SYSTEM: Obese abdomen, likely in the context of truncal edema. EXTREMITIES: Showed pitting peripheral edema. NEUROLOGIC: Revealed a patient is not communicative and no lateralizing signs. LYMPHATICS: No peripheral lymphadenopathy. SUMMARY: A 41-year-old female patient admitted with sepsis, who is now experiencing deteriorating r enal function likely in the context of cytokine/hemodynamically mediated worsening acute tubular nec rosis. Thank you for this consultation. We will follow with you.
[2017-01-06] MEDS: Pantoprazole 40 MG GRANULES PACKET PER TUBE SCH (08:48)
--- NOTE | 2017-01-06 08:48 | RAD ---
1 VIEW CHEST: Date: 01/06/17 COMPARISON: 01/05/17. HISTORY: Ventilated patient. Respiratory distress. FINDINGS: Diminished lung volumes. Pleural and parenchymal changes lung bases are noted. No pneumothorax. Stab le configuration of the cardiac silhouette. Redemonstration of endotracheal tube, nasogastric tube, and central venous catheter. IMPRESSION: No significant change. POS: [facility]
[2017-01-06] MEDS ORDERED: Calcium Chloride 1 GM/10 ML Abboject SYRINGE IVP SCH (09:00)
[2017-01-06] MEDS ORDERED: Vancomycin HCl 1 GM in Premix Bag 1 BAG IVPB SCH ×4 (09:00)
[2017-01-06 09:22] LABS: Fibrinogen 204 mg/dL (253-463)
[2017-01-06 09:23] LABS: PTT 26.8 SEC (22.9-36.1); Prothrombin Time 15.1 SEC (12.0-14.7)
[2017-01-06] MEDS ORDERED: Vancomycin HCl 1.5 GM in Sodium Chloride 0.9% 250 ML 300 ML IVPB SCH (10:00)
--- NOTE | 2017-01-06 10:57 | PRG ---
DATE OF SERVICE: 01/06/2017 SUBJECTIVE: The patient was seen and examined, still dependent on life support. PHYSICAL EXAMINATION: VITAL SIGNS: Noted with the following vital signs, blood pressure 141/77, pulse 67, respiratory rat e of , O2 saturation 95%. HEENT: Unremarkable for endotracheal tube in place with facial ecchymosis. CARDIOVASCULAR: First and second heart sounds were heard. RESPIRATORY SYSTEM: Reveals sounds. DIGESTIVE SYSTEM: Revealed obese abdomen with no significant edema. EXTREMITIES: Showed peripheral edema. LABORATORY INVESTIGATIONS: Showed a hemoglobin 9.6 with a white count of 11,600, platelets of 37,00 0. Chemistry showed a creatinine of 4.3, BUN of 63, potassium 3.0, bicarb of 28, calcium 6.2. ABG showed a pH of 7.51 with pCO2 of 34. IMPRESSION: 1. Dense acute tubular necrosis in the context of sepsis. 2. Thrombotic microangiopathy, not completely ruled out. 3. Respiratory alkalosis. 4. Hypokalemia, likely due to cellular shift of potassium due to severe alkalosis. 5. Hypervolemia, resulting in #5. 6. Respiratory failure, still requiring high FIO2. PLAN: 1. Adjust vent setting to account for this respiratory alkalosis. We will defer to the Pulmonary a nd Critical Care team. 2. Diuresis. 3. Cautions repletion of potassium because of the respiratory alkalosis improves, cellular shift of potassium will be revised, resulting in high potassium level. 4. We will continue renal supportive measures. However, if patient becomes resistant to medical th erapy, we will plan towards renal replacement therapy (hemodialysis). 5. Further management will be dependent on the clinical course.
--- NOTE | 2017-01-06 12:44 | PDOC.PN ---
- Subjective Encounter Start Date: 01/06/17 Encounter Start Time: 12:43 Subjective: remains intubated but awake but not alert -: mom is at bedside.updated - Objective MAR Reviewed: Yes Vital Signs & Weight: Vital Signs (12 hours) Temp Pulse Resp BP Pulse Ox 01/06/17 11:00 98.4 F 01/06/17 10:28 73 145/92 H 01/06/17 10:25 70 14 97 01/06/17 10:00 14 01/06/17 08:00 14 01/06/17 07:42 97.9 F 71 14 94 L 01/06/17 07:19 71 141/77 H 01/06/17 07:18 69 14 97 01/06/17 07:00 97.9 F 01/06/17 06:00 14 01/06/17 04:00 98.9 F 14 01/06/17 03:00 14 01/06/17 02:47 95 14 96 01/06/17 02:00 16 Weight Admit Weight 197 lb Weight 206 lb 9.17 oz Most Recent Monitor Data Heart Rate from ECG 82 NIBP 138/94 NIBP BP-Mean 103 Respiration from ECG 16 SpO2 93 I&O: 01/05/17 01/06/17 01/07/17 06:59 06:59 06:59 Intake Total 2138 2087.5 30 Output Total 1190 1605 890 Balance 948 482.5 -860 Result Diagrams: 01/06/17 09:05 01/06/17 04:27 Additional Labs: Accuchecks 01/06/17 01/06/17 01/05/17 11:02 00:22 16:35 POC Glucose 171 H 174 H 174 H Microbiology 01/01/17 11:37 Throat Group A Streptococcus Culture - Final 01/01/17 11:00 Throat Group A Streptococcus Screen (ELI) - Final 01/01/17 11:00 Nasal swab Influenza Types A,B Direct EIA - Final 01/05/17 15:10 Urine lord catheter Urine Culture - Preliminary NO GROWTH AT 12 HOURS 01/01/17 09:19 Venous blood - Left Arm Blood Culture - Preliminary NO GROWTH AT 48 HOURS 01/01/17 09:11 Venous blood - Left Arm Blood Culture - Preliminary NO GROWTH AT 48 HOURS Laboratory Tests 01/01/17 01/01/17 01/01/17 09:12 09:12 09:12 WBC 6.6 Hgb 11.7 L Plt Count 151 D-Dimer Creatinine 2.85 H Calcium 7.4 L Total Bilirubin 1.3 H AST 1062 H ALT 557 H Alkaline Phosphatase 99 Troponin I C-Reactive Protein TSH 3rd Generation 0.9775 PTH Intact Urine Opiates Screen Ur Tricyclics Screen U Methamphetamines Scrn U Benzodiazepines Scrn Hepatitis A IgM Ab Hep Bs Antigen Hep B Core IgM Ab Hepatitis C Antibody HIV 1&2 Antigen & Ab 01/01/17 01/01/17 01/01/17 09:12 09:12 09:12 WBC Hgb Plt Count D-Dimer Greater than 20.00 H Creatinine Calcium Total Bilirubin AST ALT Alkaline Phosphatase Troponin I Less than 0.010 C-Reactive Protein 23.54 H TSH 3rd Generation PTH Intact Urine Opiates Screen Ur Tricyclics Screen U Methamphetamines Scrn U Benzodiazepines Scrn Hepatitis A IgM Ab Hep Bs Antigen Hep B Core IgM Ab Hepatitis C Antibody HIV 1&2 Antigen & Ab 01/01/17 01/01/17 01/01/17 11:13 12:02 12:02 WBC Hgb Plt Count D-Dimer Creatinine Calcium Total Bilirubin AST ALT Alkaline Phosphatase Troponin I C-Reactive Protein TSH 3rd Generation PTH Intact Urine Opiates Screen Detected H Ur Tricyclics Screen Detected H U Methamphetamines Scrn Detected H U Benzodiazepines Scrn Detected H Hepatitis A IgM Ab Non-Reactive Hep Bs Antigen Non-Reactive Hep B Core IgM Ab Non-Reactive Hepatitis C Antibody Non-Reactive HIV 1&2 Antigen & Ab Non-Reactive 01/02/17 01/02/17 01/02/17 04:02 04:02 04:02 WBC 6.6 Hgb 10.3 L Plt Count 64 L D-Dimer Creatinine 3.00 H Calcium 5.7 L* Total Bilirubin 2.0 H AST Greater than 3500 H ALT 2572 H Alkaline Phosphatase 70 Troponin I C-Reactive Protein TSH 3rd Generation PTH Intact Urine Opiates Screen Ur Tricyclics Screen U Methamphetamines Scrn U Benzodiazepines Scrn Hepatitis A IgM Ab Hep Bs Antigen Hep B Core IgM Ab Hepatitis C Antibody HIV 1&2 Antigen & Ab 01/03/17 01/03/17 01/03/17 04:40 04:40 04:40 WBC 11.9 H Hgb 9.3 L Plt Count 63 L D-Dimer Creatinine Calcium 5.9 L* Total Bilirubin 1.7 H AST 2408 H ALT 1464 H Alkaline Phosphatase Troponin I C-Reactive Protein TSH 3rd Generation PTH Intact Urine Opiates Screen Ur Tricyclics Screen U Methamphetamines Scrn U Benzodiazepines Scrn Hepatitis A IgM Ab Hep Bs Antigen Hep B Core IgM Ab Hepatitis C Antibody HIV 1&2 Antigen & Ab 01/04/17 01/04/17 01/05/17 05:05 05:05 05:00 WBC 17.5 H 12.4 H Hgb 9.6 L Plt Count 37 L D-Dimer Creatinine Calcium 5.6 L* Total Bilirubin AST ALT Alkaline Phosphatase Troponin I C-Reactive Protein TSH 3rd Generation PTH Intact Urine Opiates Screen Ur Tricyclics Screen U Methamphetamines Scrn U Benzodiazepines Scrn Hepatitis A IgM Ab Hep Bs Antigen Hep B Core IgM Ab Hepatitis C Antibody HIV 1&2 Antigen & Ab 01/05/17 01/05/17 01/06/17 05:00 05:00 04:27 WBC 11.6 H Hgb 9.6 L Plt Count D-Dimer Creatinine 4.14 H Calcium 5.7 L* Total Bilirubin 2.7 H 2.9 H AST 389 H 396 H ALT 517 H 524 H Alkaline Phosphatase 158 H Troponin I C-Reactive Protein TSH 3rd Generation PTH Intact Urine Opiates Screen Ur Tricyclics Screen U Methamphetamines Scrn U Benzodiazepines Scrn Hepatitis A IgM Ab Hep Bs Antigen Hep B Core IgM Ab Hepatitis C Antibody HIV 1&2 Antigen & Ab 01/06/17 01/06/17 04:27 04:27 WBC Hgb Plt Count D-Dimer Creatinine 4.30 H Calcium 6.2 L Total Bilirubin AST ALT Alkaline Phosphatase Troponin I C-Reactive Protein TSH 3rd Generation PTH Intact 825.0 H Urine Opiates Screen Ur Tricyclics Screen U Methamphetamines Scrn U Benzodiazepines Scrn Hepatitis A IgM Ab Hep Bs Antigen Hep B Core IgM Ab Hepatitis C Antibody HIV 1&2 Antigen & Ab Phys Exam - Physical Examination coughing with ETT.opens eyes w verbal stimulus HEENT: PERRLA, moist MMs, sclera anicteric, oral pharynx no lesions ETT in place Neck: no nodes, no JVD Respiratory: no wheezing, no rales, no rhonchi, clear to auscultation bilateral Cardiovascular: no significant murmur tachycardia,regular Gastrointestinal: soft, no distention, positive bowel sounds Musculoskeletal: edema present poor peripheral pulses.Right foot cool to touch but dopplerable pulse in restraints Deviation from normal: peripheral cyanosis noted. diffuse mottling Dx/Plan (1) DIC (disseminated intravascular coagulation) Code(s): D65 - DISSEMINATED INTRAVASCULAR COAGULATION Status: Acute Comment : due to severe sepsis (2) Acute kidney failure Status: Acute Comment: nephrology following. rosauramichell RIVERA (3) Acute respiratory failure Code(s): J96.00 - ACUTE RESPIRATORY FAILURE, UNSP W HYPOXIA OR HYPERCAPNIA Status: Acute Comment: On mechanical ventilation (4) Hypokalemia Code(s): E87.6 - HYPOKALEMIA Status: Acute Comment: replace per ICU protocol (5) Metabolic acidosis Code(s): E87.2 - ACIDOSIS Status: Acute (6) Sepsis Code(s): A41.9 - SEPSIS, UNSPECIFIED ORGANISM Status: Acute Comment: Unknown source (7) Thrombocytopenia Code(s): D69.6 - THROMBOCYTOPENIA, UNSPECIFIED Status: Acute Comment: secondary to sepsis/DIC.heparin products discontinued (8) Transaminitis Code(s): R74.0 - NONSPEC ELEV OF LEVELS OF TRANSAMNS & LACTIC ACID DEHYDRGNSE Status: Acute Comment: due to sepsis, improving (9) Volume overload Code(s): E87.70 - FLUID OVERLOAD, UNSPECIFIED Status: Acute Comment: secondary to rescusitation for sepsis and renal failure - Plan plan discussed w/ family, lord catheter, continue antibiotics, respiratory therapy, incentive spirometry, DVT proph w/SCDs Pt has severe sepsis w DIC now.Add Vancomycin.consult ID -: may need repeat CT A/P w CT chest.no clear source so far. Cx negative. -: Monitor labs closely-poor prognosis. -: Off of pressors.cont vent Management per PCCM. -: Renal failure hasworsened.Nephrology following. renaly dose all meds * .Diuresis per nephrology.avoid IVF. * daily labs * Despite being on Meropenam, pt has not much clinical improvement.Will need broader ABx coverage empirically in my opinion. Will defer the final decision to ID. Melissa discussed this with Pt's mother at bedside Review of Systems - Review of Systems Other: can not be obtained due to intubated state - Medications/Allergies Allergies/Adverse Reactions: Allergies Allergy/AdvReac Type Severity Reaction Status Date / Time alprazolam Allergy Verified 01/01/17 21:54 cephalexin Allergy itching Verified 01/01/17 21:54 ciprofloxacin Allergy itching Verified 01/01/17 21:54 diphenhydramine Allergy Verified 01/01/17 12:22 [From Benadryl] mirtazapine Allergy Verified 01/01/17 21:54 ondansetron Allergy Verified 01/01/17 12:22 [From Zofran (as hydrochloride)] peanut Allergy Verified 01/01/17 21:54 rizatriptan Allergy Verified 01/01/17 21:54 sumatriptan [From Imitrex] Allergy Verified 01/01/17 12:21 Medications: Current Medications Acetaminophen (Tylenol) 650 mg PO Q6H PRN PRN Reason: Fever > 101 Last Admin: 01/04/17 17:40 Dose: 650 mg Albuterol/Ipratropium (Duoneb) 3 ml IPPB [id number] KYLE Last Admin: 01/06/17 10:25 Dose: 3 ml Lipase/Protease/[place]ylase ([place] [address]) 1 cap FS .PER PROTOCOL PRN PRN Reason: TUBE OCCLUSION PROTOCOL Furosemide (Lasix) 40 mg SLOW IVP 0600,1400 KYLE Fentanyl (Fentanyl Cadd) 250 mls @ 0 mls/hr IVPB INF KYLE; Titrate PRN Reason: Protocol Stop: 01/31/17 14:11 Last Admin: 01/05/17 15:33 Dose: 250 mls Fentanyl Citrate (Fentanyl Bolus) 250 mls @ 0 mls/hr IVPB PRN PRN; As Directed PRN Reason: VENTILATION SEDATION PROTOCOL Stop: 01/31/17 14:11 Midazolam HCl (Versed) 100 mls @ 0 mls/hr IVPB INF KYLE; Titrate PRN Reason: Protocol Last Admin: 01/05/17 03:02 Dose: 100 mls Meropenem 1 gm/ Miscellaneous Medication 1 each/ Sodium Chloride 100 mls @ 100 mls/hr IVPB 0200,1400 KYLE Last Admin: 01/06/17 02:00 Dose: 100 mls Lorazepam (Ativan) 2 mg SLOW IVP Q2H PRN PRN Reason: Anxiety to achieve Mack 2-3 Stop: 01/31/17 14:11 Last Admin: 01/06/17 09:43 Dose: 2 mg Methylprednisolone Sodium Succinate (Solu-Medrol) 20 mg IVP Q6HR [facility] Last Admin: 01/06/17 06:02 Dose: 20 mg Mineral Oil/White Petrolatum (Lacri-Lube Ointment) 0 gm EA EYE PRN PRN PRN Reason: Dry Eyes Last Admin: 01/04/17 21:07 Dose: 1 applic Miscellaneous Medication (Pharmacy To Dose) 1 each IVPB PRN PRN PRN Reason: Pharmacy to dose Morphine Sulfate (Morphine Sulfate) 2 mg SLOW IVP Q2H PRN PRN Reason: TO ACHIEVE POOJA SCORE 2-3 Pantoprazole Sodium (Protonix) 40 mg PER TUBE DAILY [facility] Last Admin: 01/06/17 08:48 Dose: 40 mg Sodium Bicarbonate (Bicarbonate, Sodium) 650 mg PER TUBE .PER PROTOCOL PRN PRN Reason: ENTERAL TUBE OCCLUSION Sodium Chloride (Flush - Normal Saline) 10 ml IVF Q12HR [facility] Last Admin: 01/06/17 08:49 Dose: 10 ml Sodium Chloride (Flush - Normal Saline) 10 ml IVF PRN PRN PRN Reason: Saline Flush Vecuronium [place] (Norcuron) 10 mg IVP Q1H PRN PRN Reason: Severe Agitation Last Admin: 01/06/17 10:09 Dose: 10 mg
[2017-01-06] MEDS: Furosemide 40 MG/4 ML VIAL SLOW IVP SCH (13:36)
--- NOTE | 2017-01-06 15:14 | PRG ---
DATE OF SERVICE: 01/06/2017 SUBJECTIVE: Loren Rowe remains hemodynamically stable. OBJECTIVE: VITAL SIGNS: Blood pressure 147/81, heart rate 70, respiratory rate is in the teens. LUNGS: Clear. HEART: Regular rhythm. ABDOMEN: Soft. EXTREMITIES: Unchanged. The building mover started her on Lasix. LABORATORY DATA: Her creatinine is continues to rise. Today, it is 4.3. Hospitalist started vancomycin, I have discontinued this. There are no new positive blood cultures. She is not febrile and has been stable without vancomycin for several days. I suspect this was pneumococcal sepsis. There is no indication for an Infectious Disease consult today given there has been no new infectious issues that have developed. IMPRESSION AND PLAN: Clinical sepsis. I suspect this is postviral pneumococcal infection. We will continue with supportive care. We discussed tracheostomy and PEG placement to facilitate weaning, but this decision would not be made at this time. Critical care time was 30 minutes. MTDD
[2017-01-07] MEDS: Meropenem 1 GM, Admixture Fee 1 EACH in Sodium Chloride 0.9% 100 ML IVPB SCH ×2 (02:25→12:07)
[2017-01-07 04:37] LABS: Anion Gap 14 mmol/L (10-20); BUN (Urea Nitrogen) 70 mg/dL (7.0-18.7); BUN/Creatinine Ratio 16.63; Calc. Creatinine Clearance 26 mL/min (70-130); Calcium 7.3 mg/dL (7.8-10.44); Carbon Dioxide 30 mmol/L (22-29); Chloride 99 mmol/L (98-107); Estimated GFR-MDRD 12; Phosphorus 3.6 mg/dL (2.3-4.7)
[2017-01-07 05:07] LABS: Band 3 % (5-11); Hematocrit 29.1 % (36.0-47.0); Mean Platelet Volume 12.5 fL (7.4-10.4); Metamyelocyte 2 % (0-0); Myelocyte 1 % (0-0); Neutrophil 84 % (42-75); Red Blood Cell (RBC) Count 3.05 mill/uL (4.20-5.40); White Blood Cell (WBC) Count 13.3 thou/uL (4.8-10.8)
[2017-01-07] MEDS: Vecuronium 10 MG VIAL IVP PRN ×4 (06:08→22:17)
[2017-01-07] MEDS: Furosemide 40 MG/4 ML VIAL SLOW IVP SCH ×2 (06:27→13:38)
[2017-01-07] MEDS: Potassium Chloride 40 MEQ in Premix Bag 1 BAG IVPB SCH ×2 (06:30→13:38)
[2017-01-07 07:44] LABS: Oxyhemoglobin 95.4 % (94.0-97.0); Sodium 139 mmol/L (135-148)
[2017-01-07 07:53] LABS: Modified Allen's Test POSITIVE; PIP 22 cmH2O; Pressure Support 10 cmH2O; Vent YES
[2017-01-07 07:54] LABS: Mode BILEVEL
--- NOTE | 2017-01-07 08:53 | RAD ---
1 VIEW CHEST: Date: 01/07/17 HISTORY: Respiratory distress. Ventilated patient. COMPARISON: 01/06/17. FINDINGS: Redemonstration of endotracheal tube, nasogastric tube, and central venous catheter. Stable opacific ation predominantly in the lung bases. No pneumothorax. IMPRESSION: No significant change. POS: [facility]
[2017-01-07] MEDS: Pantoprazole 40 MG GRANULES PACKET PER TUBE SCH (09:23)
--- NOTE | 2017-01-07 12:13 | PDOC.PN ---
- Subjective Encounter Start Date: 01/07/17 Encounter Start Time: 09:30 -: non-verbal Pt sedated and intubated, family at bedside and updated to condition, findings, and plan. Case discussed [id number] with Dr johnson. Pt seen and exmained on rounds, chart reviewed in itsentirety. this is my first visit with the patient. She is still off of pressors, fenantyl and versed were added for sedation and pain control, pt agitated on vent. no F/c,no D/c, resp status stable on Bilevel 31/12 with FiO2 60% - Objective Resuscitation Status: FULL MAR Reviewed: Yes Vital Signs & Weight: Vital Signs (12 hours) Temp Pulse Resp BP Pulse Ox 01/07/17 10:54 75 160/62 H 01/07/17 10:53 77 14 94 L 01/07/17 10:00 14 01/07/17 08:00 14 01/07/17 07:41 98.6 F 73 14 94 L 01/07/17 07:19 73 150/76 H 01/07/17 07:18 74 14 94 L 01/07/17 07:00 98.6 F 01/07/17 06:00 19 01/07/17 04:00 98.7 F 14 01/07/17 02:35 84 01/07/17 02:34 71 12 96 01/07/17 02:00 14 Weight Admit Weight 197 lb Weight 210 lb 12.191 oz Most Recent Monitor Data Heart Rate from ECG 88 NIBP 160/90 NIBP BP-Mean 99 Respiration from ECG 11 SpO2 95 I&O: 01/06/17 01/07/17 01/08/17 06:59 06:59 06:59 Intake Total 2087.5 1867 Output Total 1605 3485 880 Balance 482.5 -161 -880 Result Diagrams: 01/07/17 03:50 01/07/17 03:50 Additional Labs: Accuchecks 01/07/17 01/07/17 01/06/17 10:44 03:57 22:33 POC Glucose 153 H 168 H 189 H 01/06/17 16:29 POC Glucose 178 H Radiology Reviewed by me: Yes EKG Reviewed by me: Yes Phys Exam - Physical Examination sedated and orally intubated on the vent HEENT: PERRLA, moist MMs, sclera anicteric, oral pharynx no lesions ischemic changed to tip ofnose, apparently better OG tube in place, C/D/I Neck: no nodes, no JVD, supple, full ROM coarse bialteral breath sounds, no wheezing, no prolonged exp. bilaterla lateral and posterior basilar rales present Cardiovascular: RRR, no significant murmur, no rub Gastrointestinal: soft, non-tender, no distention, positive bowel sounds 3+ edema extremeties X 4, 2+ pulses in extrmeties X 4 sednated on vent Lymphatic: no nodes Deviation from normal: distal half of foot with ischemic changed, but warm with good pulses -: BUE with hand and arm ischemic changes, bullae formation, good pulses,warm Dx/Plan (1) Septic shock Code(s): A41.9 - SEPSIS, UNSPECIFIED ORGANISM; R65.21 - SEVERE SEPSIS WITH SEPTIC SHOCK Status: Acute (2) Acute kidney failure Status: Acute Comment: nephrology following. malachi RIVERA (3) Acute respiratory failure Code(s): J96.00 - ACUTE RESPIRATORY FAILURE, UNSP W HYPOXIA OR HYPERCAPNIA Status: Acute Comment: On mechanical ventilation (4) DIC (disseminated intravascular coagulation) Code(s): D65 - DISSEMINATED INTRAVASCULAR COAGULATION Status: Acute Comment : due to severe sepsis (5) Hypokalemia Code(s): E87.6 - HYPOKALEMIA Status: Acute Comment: replace per ICU protocol (6) Metabolic acidosis Code(s): E87.2 - ACIDOSIS Status: Acute (7) Thrombocytopenia Code(s): D69.6 - THROMBOCYTOPENIA, UNSPECIFIED Status: Acute Comment: secondary to sepsis/DIC.heparin products discontinued (8) Transaminitis Code(s): R74.0 - NONSPEC ELEV OF LEVELS OF TRANSAMNS & LACTIC ACID DEHYDRGNSE Status: Acute Comment: due to sepsis, improving (9) Volume overload Code(s): E87.70 - FLUID OVERLOAD, UNSPECIFIED Status: Acute Comment: secondary to rescusitation for sepsis and renal failure - Plan * . pt admitted severla days ago with septic shock. high dose pressore, voluminous fluids required to support. Septic shock is resolving. Pt sustained injury to kidneys, liver, and distale xtremeties, but seesm to all be resolving now. WBC improving, Temp had normalized, on broad abx. suspected streptococcus or other exotoxin producing organism, well covered. Still with resp failure, on vent. discussions regarding Trach and PEG are continuing. Have disccused with Dr Johnson. Will continue CCM for now. ER - placed CVC has been removed and replaced with another placed under more controlled conditions. fortunately BCx have remained negative Pt presented with high fever, admit note reads 106, family aware of 103+. few infection cause fever over 103.5, more likely to be non-infectious cause. given initial presentation of septic shock and toxin-induced injury, would certianly focus on thos infections. Too late to benefit form toxin-inhibition Rx with clindamycin or linezolid. Will add Strep pneumo ag to regimen ad pneumococcus can commonly cause post-viral infections and have high temperatures
--- NOTE | 2017-01-07 12:30 | RAD ---
1 VIEW CHEST: Date: 01/07/17 HISTORY: Status post central line placement. COMPARISON: 01/07/17 at 0410 hours. FINDINGS: Portable single view chest redemonstrates an endotracheal tube, nasogastric tube, and a right-sided central venous catheter. Interval placement of left-sided central venous catheter with distal tip pr ojecting over the superior vena cava. No pneumothorax. Stable opacification of lung parenchyma. Stab le cardiac silhouette. IMPRESSION: Interval placement of left-sided central venous catheter as above. No pneumothorax. POS: [facility]
[2017-01-07] MEDS: Fentanyl 20 MCG/ML 250 ML IVPB SCH (13:44)
--- NOTE | 2017-01-07 14:05 | PRG ---
DATE OF SERVICE: 01/07/2017 SUBJECTIVE: Ms. Loren Rowe remains ventilated. OBJECTIVE: VITAL SIGNS: Her blood pressure is up in the 160s now, heart rate is in the 70s, respiratory rate 1 6 and oximetry is 95%. GENERAL: She is still bilevel ventilated. Her fingers and her nose look better. LUNGS: Clear. HEART: Regular rhythm. ABDOMEN: Soft. LABORATORY DATA: White count is 13.3, hemoglobin 9.5 and platelets 41,000. Sodium 140, potassium 2 .7, chloride 99, bicarbonate 30, BUN 70 and creatinine 4.2. PH of 7.4, CO2 of 47 and pO2 of 77. IMPRESSION AND PLAN: Respiratory failure associated with clinical sepsis. I appreciate Dr. Sheppard' s input. We will continue supportive care. We will change out her central line today. I met with family and answered all their questions. I suspect tracheostomy in the near future.
[2017-01-07 16:04] LABS: Strp pneuU Control Background? CLEAR/WHITE (CLR/WHITE); Strp pneumo Control Bar Appear YES (CONTROL BAR)
--- NOTE | 2017-01-07 16:11 | OP ---
PROCEDURE: Central line placement. CABLE ASSEMBLER: Junito Schwartz M.D. INDICATION: Need to replace central line, placed in the emergency department. Left subclavian was prepped with Betadine and chlorhexidine. Subclavian vein was easily cannulated. The introducer was inserted followed by J-wire. The subclavian triple-lumen catheter was inserted and sewn in place x 2. Good blood return was obtained from all 3 ports. Sterile dressing was applied. Chest radiograp h showed no pneumothorax. There was minimal local bleeding that had stopped when the dressing was a pplied.
[2017-01-07] MEDS: Lorazepam 2 MG/ML VIAL SLOW IVP PRN (22:17)
[2017-01-08] MEDS: Meropenem 1 GM, Admixture Fee 1 EACH in Sodium Chloride 0.9% 100 ML IVPB SCH (01:11)
[2017-01-08] MEDS: Vecuronium 10 MG VIAL IVP PRN ×4 (02:25→21:15)
[2017-01-08] MEDS: Lorazepam 2 MG/ML VIAL SLOW IVP PRN ×4 (02:25→22:47)
[2017-01-08] MEDS: Furosemide 40 MG/4 ML VIAL SLOW IVP SCH ×2 (05:42→14:26)
[2017-01-08 05:43] LABS: Band 1 % (5-11); Hematocrit 27.8 % (36.0-47.0); Mean Platelet Volume 11.9 fL (7.4-10.4); Metamyelocyte 2 % (0-0); Microcytosis SLIGHT = 6-15 cells (100X) (0-5/hpf); Myelocyte 1 % (0-0); Neutrophil 88 % (42-75); Nucleated RBC 2 % (0); Red Blood Cell (RBC) Count 2.92 mill/uL (4.20-5.40); White Blood Cell (WBC) Count 14.4 thou/uL (4.8-10.8)
[2017-01-08 05:51] LABS: Anion Gap 15 mmol/L (10-20); BUN (Urea Nitrogen) 79 mg/dL (7.0-18.7); BUN/Creatinine Ratio 20.47; Calc. Creatinine Clearance 28 mL/min (70-130); Calcium 7.4 mg/dL (7.8-10.44); Carbon Dioxide 29 mmol/L (22-29); Chloride 102 mmol/L (98-107); Estimated GFR-MDRD 13
[2017-01-08] MEDS: Potassium Chloride 40 MEQ in Premix Bag 1 BAG IVPB SCH ×3 (06:41→14:56)
[2017-01-08 07:13] LABS: Modified Allen's Test POSITIVE; Oxyhemoglobin 95.7 % (94.0-97.0); PIP 22 cmH2O; Pressure Support 10 cmH2O; Sodium 142 mmol/L (135-148); Vent YES
[2017-01-08 07:14] LABS: Mode BILEVEL
--- NOTE | 2017-01-08 08:44 | PRG ---
DATE OF SERVICE: 01/08/2017 The patient was seen and examined, much more alert today. PHYSICAL EXAMINATION: VITAL SIGNS: Afebrile, pulse 83, blood pressure 155/79, O2 sat 95%, respiratory rate 14. HEENT: Remarkable for endotracheal tube in place. CARDIOVASCULAR: First and second heart sounds were heard. RESPIRATORY: Revealed vented sounds. ABDOMEN: Digestive system revealed truncal obesity. EXTREMITIES: Shows some peripheral edema with multiple extremities. LABORATORY INVESTIGATIONS: Showed a potassium of 2.7, BUN of 70, creatinine of 4.21 with calcium of 7.3. Blood gas showed a pH of 7.47, pCO2 of 39. IMPRESSION: 1. Acute tubular necrosis, nonoliguric. 2. Hypervolemia responding to diuretics. 3. Hypokalemia of multifactorial etiology including loss through urinary output as well as cellular shift due to respiratory alkalosis. 4. Sepsis/multiorgan failure. 5. Respiratory alkalosis. PLAN: 1. Replete potassium to the tune of 120 mEq today. 2. Continue diuresis, will augment the effect of loop diuretic for today and monitor the hemodynami cs. 3. There is no emergent indication for renal replacement therapy. 4. Further management will be dependent on the clinical course.
[2017-01-08] MEDS ORDERED: Metolazone 5 MG TAB PO SCH (08:45)
--- NOTE | 2017-01-08 08:52 | PRG ---
DATE OF SERVICE: 01/07/2017 SUBJECTIVE: The patient noticed to be on life support. OBJECTIVE: VITAL SIGNS: Afebrile with temperature 98.1, pulse 110, respiratory rate of 14, O2 sat 94% with a b lood pressure 153/83. HEENT: Unremarkable for endotracheal tube in place. CARDIOVASCULAR: First and second heart sounds were heard. RESPIRATORY: Reveals vented sounds. DIGESTIVE: Revealed a obese abdomen. EXTREMITIES: Showed improving peripheral edema. NEUROLOGIC: Revealed a patient that is arousable. No lateralizing sign. LABORATORY INVESTIGATION: Significant for pH of 7.40, pCO2 of 47. Chemistry showed potassium of 2. 7, creatinine 4.21 with BUN of 70, calcium 7.3. IMPRESSION: 1. Hemodynamically/cytokine mediated acute tubular necrosis, responding well to diuretics. 2. Hypervolemia on life support. 3. Hypoxic respiratory failure. 4. Sepsis/multilevel failure. PLAN: 1. We will continue with diuresis. 2. We will replete the potassium with 80 mEq of potassium. 3. Further management to be dependent on the clinical course.
--- NOTE | 2017-01-08 09:12 | RAD ---
PORTABLE AP CHEST: Date: 01/08/17 HISTORY: On ventilator. Follow-up evaluation. COMPARISON: 01/07/17. FINDINGS/IMPRESSION: Right internal jugular vein central venous catheter has been removed. The endotracheal tube, left harding bclavian central venous catheter, and nasogastric tube remain in place and unchanged in position. Pa renchymal opacification in the right lung base and right perihilar region is again present. There is also suggestion of an opacity now present in the retrocardiac region of left lung base. Findings co uld be related to pneumonia and follow-up to resolution is recommended. Atypical pneumonia is a poss ibility. POS: [facility]
[2017-01-08] MEDS: Pantoprazole 40 MG GRANULES PACKET PER TUBE SCH (09:21)
[2017-01-08] MEDS ORDERED: Vancomycin HCl 1 GM in Premix Bag 1 BAG IVPB SCH (10:00)
--- NOTE | 2017-01-08 10:54 | PDOC.PN ---
- Subjective Encounter Start Date: 01/08/17 Encounter Start Time: 08:55 -: non-verbal Pt on Versed at 5/hr, fentanyl 100/hr, and had to get succ overnight and ativan for agitation. Pt awakens and smiles and shakes/nods appropriately. Afebrile overnight, no acute events noted otherwise. Still off pressors, vitals stable. Mother and Grandmother at the bedside ROS not available due to intubated status - Objective Resuscitation Status: FULL MAR Reviewed: Yes Vital Signs & Weight: Vital Signs (12 hours) Temp Pulse Resp BP Pulse Ox 01/08/17 08:00 100.2 F H 01/08/17 06:44 83 155/79 H 01/08/17 06:42 81 14 95 01/08/17 06:00 14 01/08/17 04:00 99 F 14 01/08/17 02:19 111 H 01/08/17 02:18 108 H 23 H 95 01/08/17 02:00 14 01/08/17 00:00 98.2 F 18 Weight Admit Weight 197 lb Weight 202 lb 6.15 oz Most Recent Monitor Data Heart Rate from ECG 118 NIBP 159/90 NIBP BP-Mean 104 Respiration from ECG 16 SpO2 97 I&O: 01/07/17 01/08/17 01/09/17 06:59 06:59 06:59 Intake Total 1867 1542 100 Output Total 3485 2985 980 [id number] [id number] [phone] Result Diagrams: 01/08/17 04:10 01/08/17 04:10 Additional Labs: Accuchecks 01/08/17 01/07/17 01/07/17 04:10 23:05 15:39 POC Glucose 161 H 173 H 172 H 01/07/17 10:44 POC Glucose 153 H Radiology Reviewed by me: Yes EKG Reviewed by me: Yes Phys Exam - Physical Examination Constitutional: NAD smiles and shakes/nods appropriately, but gets agitated when she realizes that she is retrained HEENT: PERRLA, moist MMs, sclera anicteric, oral pharynx no lesions ETT/OGT in place Neck: no nodes, no JVD, supple, full ROM Respiratory: no wheezing, no rales, no rhonchi Cardiovascular: RRR, no significant murmur, no rub Gastrointestinal: soft, non-tender, no distention, positive bowel sounds Musculoskeletal: pulses present, edema present Neurological: non-focal, normal sensation, moves all 4 limbs Lymphatic: no nodes Skin: no rash, normal turgor, cap refill <2 seconds Deviation from normal: ischemic changed to distal toes appear darker, 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 Off pressors, fever resolved, perfusion appears to be much better, likely back at baseline (2) Acute kidney failure Status: Acute Qualifiers: Acute renal failure type: with acute tubular necrosis Qualified Code(s): N17.0 - Acute kidney failure with tubular necrosis Comment: nephrology following. malachi RIVERA. Cr down to 3.86 today, improving daily, UOP picking up (3) Acute respiratory failure Code(s): J96.00 - ACUTE RESPIRATORY FAILURE, UNSP W HYPOXIA OR HYPERCAPNIA Status: Acute Qualifiers: Respiratory failure complication: hypoxia Qualified Code(s): J96.01 - Acute respiratory failure with hypoxia Comment: On mechanical ventilation, per pulm (4) DIC (disseminated intravascular coagulation) Code(s): D65 - DISSEMINATED INTRAVASCULAR COAGULATION Status: Acute Comment : due to severe sepsis (5) Hypokalemia Code(s): E87.6 - HYPOKALEMIA Status: Acute Comment: replace per ICU protocol , Dr Page has started some K+ IV (6) Metabolic acidosis Code(s): E87.2 - ACIDOSIS Status: Resolved (7) Thrombocytopenia Code(s): D69.6 - THROMBOCYTOPENIA, UNSPECIFIED Status: Acute Comment: secondary to sepsis/DIC.heparin products discontinued. Increasing slowly, no s/ Sx bleed (8) Transaminitis Code(s): R74.0 - NONSPEC ELEV OF LEVELS OF TRANSAMNS & LACTIC ACID DEHYDRGNSE Status: Resolved Comment: due to sepsis, improving (9) Volume overload Code(s): E87.70 - FLUID OVERLOAD, UNSPECIFIED Status: Acute Comment: secondary to rescusitation for sepsis and renal failure - Plan cont current plan of care, plan discussed w/ family, PT/OT, respiratory therapy , DVT proph w/SCDs * .
--- NOTE | 2017-01-08 13:43 | PRG ---
DATE OF SERVICE: 01/08/2017 SUBJECTIVE: Ms. Loren Rowe remains hemodynamically stable. She is developing some toleran ce to sedative drugs. Her Versed has been increased, OBJECTIVE: VITAL SIGNS: She is afebrile, heart rate is 78, blood pressure 151/79, respiratory rate 20. LUNGS: Clear anteriorly. Her exhaled tidal volumes with bilevel ventilation have been steadily increasin g, so her compliance appears to be improving. We switched her back to volume ventilation today. HEART: Regular rhythm. S1 and S2 are normal. ABDOMEN: Soft. LABORATORY DATA: White count is 14.4, hemoglobin 9.1, platelets 45,000. Sodium 143, potassium 2.9, chloride 102, bicarbonate 29, BUN 79, creatinine is improved from 3.86. Intake and output is negat shane 14 and 43. IMPRESSION: 1. Sepsis. 2. Ischemic digits. Her digits are warm, but discolored. They appear to be stable and slightly im proved. 3. Acute kidney injury associated with sepsis, improving. 4. Volume overload, improving. 5. Severe preexisting anxiety. She is waking up on 7 mg an hour Versed. 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 6. Hypokalemia. 7. Hypoalbuminemia as expected. 8. Probable postviral pneumococcal sepsis and a central line was placed yesterday. PLAN: Continue current care. I suspect we will wean relatively quickly once tracheostomy and PEG a re in place. Hopefully, these can be done in the next couple of days. Surgery will be consulted. I will call the surgeon.
[2017-01-08] MEDS: Meropenem 1 GM, IV Admixture Fee-Chemo 1 UNITS in Sterile Water 20 ML SLOW IVP SCH (14:52)
[2017-01-08] MEDS ORDERED: Bacteriostatic Normal Saline 30 ML VIAL ONE (21:14)
[2017-01-08] MEDS ORDERED: Sterile Water 10 ML ONE (21:14)
[2017-01-09] MEDS: Fentanyl 20 MCG/ML 250 ML IVPB SCH (00:44)
[2017-01-09] MEDS: Lorazepam 2 MG/ML VIAL SLOW IVP PRN ×2 (00:45→22:03)
[2017-01-09] MEDS: Meropenem 1 GM, IV Admixture Fee-Chemo 1 UNITS in Sterile Water 20 ML SLOW IVP SCH ×2 (00:53→15:46)
[2017-01-09 05:14] LABS: Anion Gap 14 mmol/L (10-20); BUN (Urea Nitrogen) 81 mg/dL (7.0-18.7); BUN/Creatinine Ratio 22.95; Calc. Creatinine Clearance 31 mL/min (70-130); Calcium 7.8 mg/dL (7.8-10.44); Carbon Dioxide 30 mmol/L (22-29); Chloride 106 mmol/L (98-107); Estimated GFR-MDRD 14; Phosphorus 3.3 mg/dL (2.3-4.7)
[2017-01-09 05:17] LABS: Band 2 % (5-11); Hematocrit 25.9 % (36.0-47.0); Neutrophil 93 % (42-75); Red Blood Cell (RBC) Count 2.69 mill/uL (4.20-5.40); White Blood Cell (WBC) Count 15.8 thou/uL (4.8-10.8)
[2017-01-09] MEDS: Furosemide 40 MG/4 ML VIAL SLOW IVP SCH ×2 (05:52→15:03)
[2017-01-09 07:44] LABS: Oxyhemoglobin 95.8 % (94.0-97.0); Sodium 144 mmol/L (135-148)
[2017-01-09 08:09] LABS: Mechanical Tidal Volume 400 ml; Mode SIMV.PSV; Modified Allen's Test POSITIVE; Pressure Support 10 cmH2O; Vent YES
[2017-01-09] MEDS ORDERED: Enoxaparin Sodium 30 MG/0.3 ML SYRINGE SC SCH (09:00)
[2017-01-09] MEDS: Pantoprazole 40 MG VIAL IVP SCH (09:00)
--- NOTE | 2017-01-09 09:29 | HP ---
HISTORY OF PRESENT ILLNESS: Ms. Loren Rowe is a 41-year-old female followed by Hospitalist , Pulmonary Medicine. The patient was brought in with fever to 106 degrees and intubated. The candido ent had a history of URI syndrome, general malaise. She has suffered respiratory failure, unable to wean her. GFR 14, BUN 81, creatinine 3.5. The patient had a history of severe anxiety, depression , hypertension. She is felt to be septic, pneumonia, URI. Plan is to place a tracheostomy and PEG tube. Dr. Jimenes has also been seeing her. Her GFR 14. ALLERGIES: ALPRAZOLAM, CEPHALEXIN, CIPRO, DIPHENHYDRAMINE. PAST MEDICAL HISTORY: History of mild mental disability, migraines, hypertension. PAST SURGICAL HISTORY: . TOBACCO: None. ALCOHOL: None. DRUG USE: None. PAST SURGICAL HISTORY: Not available, but she has an upper midline abdominal scar. LABORATORY DATA AND IMAGING: She had a CAT scan on admission noting 3 or 4 left renal calculus, no evidence of obstruction, no other acute findings were noted. Sodium 146, potassium 3.5, CO2 30, BUN 81, creatinine 3.5, GFR 14, hemoglobin 8.3, white count 15. ASSESSMENT AND PLAN: Respiratory failure. PLAN: 1. Tracheostomy. Risks and benefits have been explained. 2. Malnutrition. PEG tube placement. 3. Mental retardation. 4. Sepsis. 5. Chronic renal insufficiency superimposed on acute kidney injury. Dr. Jimenes is following.
--- NOTE | 2017-01-09 10:15 | PDOC.PN ---
- Subjective Encounter Start Date: 01/09/17 Encounter Start Time: 07:45 -: non-verbal Pt awake, orally intubated on SIMV, less agitated at present. Notes reviewed, Case discussed with nursing. Pt degloved part of her L hand, wrapped at present. Lost toenail to left hallux. No F/c, no N/V, no acute respiratory events. Family not at bedside at time of visit. 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 Plan to trach and place PEG today. - Objective Resuscitation Status: FULL MAR Reviewed: Yes Vital Signs & Weight: Vital Signs (12 hours) Temp Pulse Resp BP Pulse Ox 01/09/17 08:00 98.3 F 92 18 98 01/09/17 07:15 112 H 169/92 H 01/09/17 07:14 117 H 22 H 98 01/09/17 06:00 20 01/09/17 04:00 98.3 F 22 H 01/09/17 02:50 91 94 L 01/09/17 02:00 22 H 01/09/17 00:00 98.3 F 21 H 01/08/17 23:48 113 H 170/97 H 01/08/17 23:47 98 97 Weight Admit Weight 197 lb Weight 197 lb 5.019 oz Most Recent Monitor Data Heart Rate from ECG 104 NIBP 152/118 NIBP BP-Mean 130 Respiration from ECG 23 SpO2 98 I&O: 01/08/17 01/09/17 01/10/17 06:59 06:59 06:59 Intake Total 1542 1907.7 Output Total 2985 4515 525 [facility] -1443 -2607.3 -525 Result Diagrams: 01/09/17 04:40 01/09/17 04:40 Radiology Reviewed by me: Yes EKG Reviewed by me: Yes Phys Exam - Physical Examination Constitutional: NAD HEENT: PERRLA, moist MMs, sclera anicteric, oral pharynx no lesions oral ETT intact Neck: no nodes, no JVD, supple, full ROM Respiratory: no wheezing, no rhonchi coarse bilateal crackles Cardiovascular: RRR, no significant murmur, no rub Gastrointestinal: soft, non-tender, no distention, positive bowel sounds Musculoskeletal: pulses present, edema present Neurological: non-focal, moves all 4 limbs Lymphatic: no nodes Deviation from normal: ischemic changes slowly fading, feet and hands warm, pulses 2+ Dx/Plan (1) Septic shock Code(s): A41.9 - SEPSIS, UNSPECIFIED ORGANISM; R65.21 - SEVERE SEPSIS WITH SEPTIC SHOCK Status: Acute Comment: WBC up a little, bands up from 1-2%, on steroids. Off pressors, fever resolved, Tmax yesterday am 100.2, perfusion appears to be much better, likely back at baseline (2) Acute kidney failure Status: Acute Qualifiers: Acute renal failure type: with acute tubular necrosis Qualified Code(s): N17.0 - Acute kidney failure with tubular necrosis Comment: nephrology following. malachi ATN. Cr down to 3.53 today, improving daily, UOP picking up (3) Acute respiratory failure Code(s): J96.00 - ACUTE RESPIRATORY FAILURE, UNSP W HYPOXIA OR HYPERCAPNIA Status: Acute Qualifiers: Respiratory failure complication: hypoxia Qualified Code(s): J96.01 - Acute respiratory failure with hypoxia Comment: On mechanical ventilation, per pulm. Trach planned for today (4) DIC (disseminated intravascular coagulation) Code(s): D65 - DISSEMINATED INTRAVASCULAR COAGULATION Status: Acute Comment : due to severe sepsis (5) Hypokalemia Code(s): E87.6 - HYPOKALEMIA Status: Resolved Comment: replace per ICU protocol, Dr Page gave some K+ IV. normal today (6) Metabolic acidosis Code(s): E87.2 - ACIDOSIS Status: Resolved (7) Thrombocytopenia Code(s): D69.6 - THROMBOCYTOPENIA, UNSPECIFIED Status: Acute Comment: secondary to sepsis/DIC.heparin products discontinued. Increasing slowly, no s/ Sx bleed (8) Transaminitis Code(s): R74.0 - NONSPEC ELEV OF LEVELS OF TRANSAMNS & LACTIC ACID DEHYDRGNSE Status: Resolved Comment: due to sepsis, improving (9) Volume overload Code(s): E87.70 - FLUID OVERLOAD, UNSPECIFIED Status: Acute Comment: secondary to rescusitation for sepsis and renal failure - Plan cont current plan of care, continue antibiotics, PT/OT, DVT proph w/SCDs * .
[2017-01-09] MEDS ORDERED: Midazolam HCl 5 mg/5 ml Vial ONE (12:19)
[2017-01-09] MEDS ORDERED: Fentanyl 100 MCG/2 ML VIAL ONE (12:19)
[2017-01-09] MEDS ORDERED: Bupivacaine 0.25% HCL 30 ML VIAL ONE (12:32)
[2017-01-09] MEDS ORDERED: Diprivan 20 ML ONE (12:58)
[2017-01-09] MEDS ORDERED: Ondansetron HCl/PF 4 MG/2 ML Vial ONE (13:17)
[2017-01-09] MEDS ORDERED: Dexamethasone 20 MG/5 ML VIAL ONE (13:17)
[2017-01-09] MEDS ORDERED: Propofol 200 MG/20 ML VIAL ONE (13:17)
--- NOTE | 2017-01-09 13:34 | PRG ---
DATE OF SERVICE: 01/09/2017 SUBJECTIVE: Ms. Rowe is unchanged. She is sedated for mechanical ventilation. OBJECTIVE: She is 161/108 and 155/87 earlier. Heart rate is in the 90s, respiratory rate in the te ens. She is, as mentioned yesterday, developing a tolerance of sedative drugs. Lungs, heart, and a bdomen are unchanged. Her digits are all warm, but they are still discolored as expected after clin ical sepsis. White count is 15.8, hemoglobin 8.3, platelets 41,000. She will be started on Lovenox after her tra ch and PEG. Sodium 146, potassium 3.5, chloride 106, bicarbonate 30, BUN 81, creatinine 3.53 down from 3.86 yest erday. Intake and output is negative 2607. IMPRESSION: 1. Status post clinical sepsis, most likely with pneumococcus. 2. Digital ischemia secondary to high dose pressor requirements. 3. Severe anxiety with cutaneous excoriations secondary to her anxiety. Wound care is dealing with these as well as her digital ischemia. We will decrease her steroid doses. Hopefully, try and minimize the downstream muscle weakness, try ing to avoid using paralytics in her. She will have a trach and PEG today to hopefully facilitate e dalton weaning.
[2017-01-09] MEDS ORDERED: Lidocaine 2% w/Epinephrine 1:200K 20 ML VIAL ONE (13:40)
[2017-01-09] MEDS ORDERED: Pantoprazole 40 MG VIAL IVP SCH (14:00)
--- NOTE | 2017-01-09 15:41 | PRG ---
DATE OF SERVICE: 01/09/2017 SUBJECTIVE: Loren Rowe was seen and examined, somewhat agitated, status post tracheostomy and PEG placement. PHYSICAL EXAMINATION: VITAL SIGNS: Noted with the following vital signs: Blood pressure 186/104, pulse of 108-127, respi ratory rate 20, O2 sat 98%. HEENT: Examination remarkable for recent tracheostomy tube. CARDIOVASCULAR: First and second heart sounds, tachycardic. RESPIRATORY: Reveals vented sounds. ABDOMEN: Digestive system revealed evidence of recent PEG tube placement. EXTREMITIES: Showed peripheral edema with ecchymosis, slight discoloration of the digits. NEUROLOGIC: Sleepy, but no lateralizing sign. LABORATORY DATA: Hemoglobin of 8.3. Chemistry showed sodium of 146, BUN of 81, creatinine of 3.53, potassium 3.5. IMPRESSION: 1. Acute tubular necrosis showing signs of recovery. 2. Hypervolemia responding to diuretics. 3. Anemia. 4. Sepsis/multiorgan failure. 5. Respiratory failure, status post tracheostomy and percutaneous endoscopic gastrostomy. PLAN: 1. We will continue with current diuresis. 2. Renal supportive measures. 3. Renally dose all medications per low GFR. 4. Patient may benefit from initiation erythropoiesis-stimulating agent. 5. Further management will be dependent on the clinical course.
--- NOTE | 2017-01-09 16:37 | OP ---
DATE OF PROCEDURE: 01/09/2017 PREOPERATIVE DIAGNOSES: Cephalopathy, resolving sepsis, respiratory failure, dysphagia. POSTOPERATIVE DIAGNOSES: Cephalopathy, resolving sepsis, respiratory failure, dysphagia. PROCEDURES: A #8 Shiley tracheostomy tube low pressure cuff. Percutaneous endoscopic gastrostomy t ube. SURGEON: Dr. Jesse Kinsey ANESTHESIA: General. Local 0.5% Marcaine, 30 mL, mixed with 2% Xylocaine with epinephrine 10 mL. PROCEDURE IN DETAIL: Patient taken to the operating room where under general anesthesia, neck, ches t, abdomen prepared with ChloraPrep, draped in routine fashion. Local anesthetic mixture infiltrate d into skin and subcutaneous tissue about the operative site. Incision made transversely in the nec k above the manubrium and carried down through skin and platysma, midline strap muscles, identifying the isthmus dividing with the cautery, identifying the trachea below the cricoid and anterior windo w of the cricoid dissected free, excised over two cartilaginous rings after 3-0 Prolene stay sutures were placed on either side and air knots tied. Under direct visualization, a #8 Shiley tracheostom y tube low pressure cuff placed into the trachea. Balloon inflated after endotracheal tube removed, it was connected to the ventilator. Wound closed by approximating skin on either side with continu ous suture of 3-0 Prolene and sterile dressings applied. Tracheostomy straps secured the tracheosto my tube. Endoscope placed per os under direct visualization using air insufflation passed throughout stomach, insufflating the stomach and making a stab incision in the left subcostal medial, placing the troca r catheter, visualizing it endoscopically, grasping the wire with the snare and bringing out the mckayla th along with endoscope and wire connected to the feeding device. Feeding tube which was then pulle d back down to the mouth after lubricating it and into the stomach lumen securing it to the skin wit h a fixation device and sterile dressings. Patient tolerated the procedure well.
[2017-01-09] MEDS: Pantoprazole 40 MG GRANULES PACKET PER TUBE SCH (20:25)
[2017-01-10] MEDS: Lorazepam 2 MG/ML VIAL SLOW IVP PRN ×3 (00:07→22:49)
[2017-01-10] MEDS: Fentanyl 20 MCG/ML 250 ML IVPB SCH (01:31)
[2017-01-10] MEDS: Meropenem 1 GM, IV Admixture Fee-Chemo 1 UNITS in Sterile Water 20 ML SLOW IVP SCH ×2 (01:40→13:57)
[2017-01-10 05:10] LABS: Band 3 % (5-11); Hematocrit 23.3 % (36.0-47.0); Mean Platelet Volume 10.6 fL (7.4-10.4); Neutrophil 83 % (42-75); Nucleated RBC 1 % (0); Red Blood Cell (RBC) Count 2.36 mill/uL (4.20-5.40); White Blood Cell (WBC) Count 11.3 thou/uL (4.8-10.8)
[2017-01-10 05:12] LABS: Anion Gap 15 mmol/L (10-20); BUN (Urea Nitrogen) 79 mg/dL (7.0-18.7); Calc. Creatinine Clearance 33 mL/min (70-130); Calcium 7.8 mg/dL (7.8-10.44); Carbon Dioxide 30 mmol/L (22-29); Chloride 106 mmol/L (98-107); Estimated GFR-MDRD 17
[2017-01-10] MEDS: Furosemide 40 MG/4 ML VIAL SLOW IVP SCH ×2 (05:35→13:03)
[2017-01-10 07:39] LABS: Mechanical Tidal Volume 400 ml; Oxyhemoglobin 96.4 % (94.0-97.0); Sodium 146 mmol/L (135-148); Vent YES
[2017-01-10 07:40] LABS: Mode SIMV; Pressure Support 10 cmH2O
[2017-01-10] MEDS: Enoxaparin Sodium 30 MG/0.3 ML SYRINGE SC SCH (08:19)
[2017-01-10] MEDS: Pantoprazole 40 MG VIAL IVP SCH (08:19)
--- NOTE | 2017-01-10 08:31 | RAD ---
ONE VIEW CHEST: HISTORY: Respiratory distress. Ventilated patient. COMPARISON: 01/05/2017 FINDINGS: There has been interval placement of a left-sided central venous catheter. The distal tip projects over the right atrium. A tracheostomy tube is identified. The endotracheal tube has been removed. Pleural and parenchymal changes in the left lung base and right hemithorax. No pneumothorax. IMPRESSION: 1. Lines and tubes as above. 2. Persistent opacification of the lung parenchyma. POS: OFF
[2017-01-10] MEDS ORDERED: Epoetin (ESRD) 20,000 UNITS/ML SC SCH (09:15)
--- NOTE | 2017-01-10 09:16 | PRG ---
DATE OF SERVICE: 01/10/2017 The patient was seen and examined today and much more alive. Very thirsty, asking for water. PHYSICAL EXAMINATION: VITAL SIGNS: Blood pressure 151/99, pulse 144, respiratory rate 16, O2 saturation 98%. HEENT: Remarkable for tracheostomy tube in place. CARDIOVASCULAR: First and second heart sounds, tachycardic. RESPIRATORY: Reveals vented sounds. ABDOMEN: Digestive system revealed obese abdomen. EXTREMITIES: Showed ecchymosis and depigmentation. LABORATORY: Sodium of 148, potassium 3.3, BUN of 79 and creatinine 3.07, calcium of 7.8. CBC showe d a hemoglobin of 7.7, platelets 447,000. IMPRESSION: 1. Acute tubular necrosis, likely imposed acute tubular necrosis diuretic phase. 2. Anemia of multifactorial etiology. 3. Hypernatremia responsible for increased thirst. This is likely in the context of diuresis, diogo cially that related to post-acute tubular necrosis diuretic phase. 4. Multi-organ failure/sepsis. PLAN: 1. At some point, we will begin to be escalated diuretic regimen given the fact that this patient i s likely in the post-ATN diuretic phase. 2. Free water repletion to address the hypernatremia and increased thirst. 3. Replete potassium. 4. Consider erythropoiesis stimulating agent. 5. Further management to be dependent on the clinical course.
[2017-01-10] MEDS: Potassium Chloride 40 MEQ in Dextrose 5% in Water 1,000 ML IV SCH ×2 (10:13)
[2017-01-10] MEDS: clonazePAM 0.5 MG TAB PO SCH ×3 (10:14→21:01)
--- NOTE | 2017-01-10 10:43 | PDOC.PN ---
- Subjective Encounter Start Date: 01/10/17 Encounter Start Time: 08:40 -: non-verbal Trach and PEG yesterday, lincoln well. some post op blood oozing. No f/C, no N/V/d/c, lincoln tube feeds. Pt more awake, less agitated, following commands. No CP, minimal cough, no sputum or hemoptysis. Mother at [place]. Returned later to see wounds with wound care, Sister at bedside, all updated. - Objective Resuscitation Status: FULL MAR Reviewed: Yes Vital Signs & Weight: Vital Signs (12 hours) Temp Pulse Resp Pulse Ox 01/10/17 10:29 110 H 01/10/17 10:00 14 01/10/17 08:00 98.3 F 57 L 16 100 01/10/17 07:25 144 H 01/10/17 07:00 98.3 F 01/10/17 06:00 14 01/10/17 04:00 18 01/10/17 03:10 122 H 14 99 01/10/17 03:00 98.2 F 01/10/17 02:00 16 01/10/17 00:00 19 01/09/17 23:00 98.1 F Weight Admit Weight 197 lb Weight 192 lb 0.362 oz Most Recent Monitor Data Heart Rate from ECG 114 NIBP 154/96 NIBP BP-Mean 113 Respiration from ECG 13 SpO2 100 I&O: 01/09/17 01/10/17 01/11/17 06:59 06:59 06:59 Intake Total 1907.7 1023.6 170 Output Total 4515 4255 675 Balance -2607.3 -3231.4 -505 Result Diagrams: 01/10/17 04:15 01/10/17 04:15 Radiology Reviewed by me: Yes EKG Reviewed by me: Yes Phys Exam - Physical Examination Constitutional: NAD HEENT: PERRLA, moist MMs, sclera anicteric, oral pharynx no lesions Neck: no nodes, no JVD, supple, full ROM Respiratory: no wheezing, no rales, no rhonchi, clear to auscultation bilateral Cardiovascular: RRR, no significant murmur, no rub, gallop Gastrointestinal: soft, non-tender, no distention, positive bowel sounds Musculoskeletal: no edema, pulses present Neurological: non-focal, normal sensation, moves all 4 limbs Lymphatic: no nodes Psychiatric: normal affect, A&O x 3 Skin: no rash, normal turgor, cap refill <2 seconds Dx/Plan (1) Septic shock Code(s): A41.9 - SEPSIS, UNSPECIFIED ORGANISM; R65.21 - SEVERE SEPSIS WITH SEPTIC SHOCK Status: Acute Comment: WBC down to 11.3. CCM at present, sold be able ot stop abx soon (2) Acute kidney failure Status: Acute Qualifiers: Acute renal failure type: with acute tubular necrosis Qualified Code(s): N17.0 - Acute kidney failure with tubular necrosis Comment: nephrology following. malachi RIVERA. Cr down to 3.07 today, improving daily, UOP picking up (3) Acute respiratory failure Code(s): J96.00 - ACUTE RESPIRATORY FAILURE, UNSP W HYPOXIA OR HYPERCAPNIA Status: Acute Qualifiers: Respiratory failure complication: hypoxia Qualified Code(s): J96.01 - Acute respiratory failure with hypoxia Comment: On mechanical ventilation, per pulm. Trached 01/09. Pt more confortable. Vent weaning per pulm (4) DIC (disseminated intravascular coagulation) Code(s): D65 - DISSEMINATED INTRAVASCULAR COAGULATION Status: Acute Comment : due to severe sepsis. SLowly resolving. some post op trach bleeding, as expected. PEG site intact (5) Hypokalemia Code(s): E87.6 - HYPOKALEMIA Status: Acute Comment: replace per ICU protocol , 3.3 today. (6) Metabolic acidosis Code(s): E87.2 - ACIDOSIS Status: Resolved (7) Thrombocytopenia Code(s): D69.6 - THROMBOCYTOPENIA, UNSPECIFIED Status: Acute Comment: secondary to sepsis/DIC.heparin products discontinued. Increasing slowly, no s/ Sx bleed. 47K today (8) Transaminitis Code(s): R74.0 - NONSPEC ELEV OF LEVELS OF TRANSAMNS & LACTIC ACID DEHYDRGNSE Status: Resolved Comment: due to sepsis (9) Volume overload Code(s): E87.70 - FLUID OVERLOAD, UNSPECIFIED Status: Acute Comment: secondary to rescusitation for sepsis and renal failure. Improving with improved renal function - Plan cont current plan of care, plan discussed w/ family, continue antibiotics, PT/OT , speech therapy, respiratory therapy, DVT proph w/SCDs * .
[2017-01-10] MEDS: Haloperidol Lactate 5 MG/ML VIAL IM PRN ×2 (11:10→19:49)
[2017-01-10 12:06] VITALS: BMI 38.7
--- NOTE | 2017-01-10 17:49 | PRG ---
DATE OF SERVICE: 01/10/2017 SUBJECTIVE: She did well status post tracheostomy and PEG tube. Her abdomen is soft and nontender. Tracheostomy site is healthy. At this point, I will see her as needed. Please call if there are any problems or needs.
--- NOTE | 2017-01-10 19:25 | PRG ---
DATE OF SERVICE: 01/10/2017 SUBJECTIVE: Ms. Rowe has been allowed to awake today. She is very anxious as her family e xpected. OBJECTIVE: VITAL SIGNS: She is afebrile, heart rate can go up to 140 when she is anxious, but this appears to be sinus tachycardia. Heart rate is 118, blood pressure 141/93, respiratory rates in the teens. LUNGS: Remarkable for bilateral equal breath sounds. HEART: Regular rhythm. Abdomen: Soft. IMPRESSION: Respiratory failure after sepsis. White count today is 11.1, hemoglobin 7.7, platelets 47,000. Sodium 148, potassium 3.3, chloride 106, bicarbonate 30, BUN 79, creatinine is down to 3.07. Intake and output is negative 30 to 31. She is tolerating diuresis and in spite of the diuresis, he r creatinine is improving. She was successfully weaned to T-collar today. We will not currently ventilate her with pressure harding pport, we can give her a little sedation during the evenings. Critical care time was 30 minutes.
[2017-01-11] MEDS: Haloperidol Lactate 5 MG/ML VIAL IM PRN ×3 (01:35→09:54)
[2017-01-11] MEDS: Meropenem 1 GM, IV Admixture Fee-Chemo 1 UNITS in Sterile Water 20 ML SLOW IVP SCH ×2 (01:40→13:48)
[2017-01-11] MEDS: Potassium Chloride 40 MEQ in Dextrose 5% in Water 1,000 ML IV SCH ×2 (03:25)
[2017-01-11] MEDS: Lorazepam 2 MG/ML VIAL SLOW IVP PRN ×2 (04:24→22:04)
[2017-01-11] MEDS: Furosemide 40 MG/4 ML VIAL SLOW IVP SCH ×2 (05:10→14:04)
[2017-01-11 05:15] LABS: Band 2 % (5-11); Hematocrit 22.9 % (36.0-47.0); Mean Platelet Volume 10.1 fL (7.4-10.4); Neutrophil 82 % (42-75); Red Blood Cell (RBC) Count 2.33 mill/uL (4.20-5.40); White Blood Cell (WBC) Count 9.7 thou/uL (4.8-10.8)
[2017-01-11 07:55] LABS: Anion Gap 15 mmol/L (10-20); BUN (Urea Nitrogen) 70 mg/dL (7.0-18.7); Calc. Creatinine Clearance 38 mL/min (70-130); Calcium 8.4 mg/dL (7.8-10.44); Carbon Dioxide 30 mmol/L (22-29); Chloride 104 mmol/L (98-107); Estimated GFR-MDRD 20
[2017-01-11] MEDS: Pantoprazole 40 MG VIAL IVP SCH (09:27)
[2017-01-11] MEDS: Enoxaparin Sodium 30 MG/0.3 ML SYRINGE SC SCH (09:28)
[2017-01-11] MEDS: clonazePAM 0.5 MG TAB PO SCH ×3 (09:28→20:23)
--- NOTE | 2017-01-11 09:54 | PDOC.PN ---
- Subjective Encounter Start Date: 01/11/17 Encounter Start Time: 07:30 -: non-verbal Pt very agitated when i saw her. Had a BM and was turned to clean. just had another and is thrashing. Ativna beign given. No acute event sovernigh,t no F/C , no N/V/D/c, no CP. no family at bedside yet ROs not obtainable Nursing reports no change otherwise - Objective Resuscitation Status: FULL MAR Reviewed: Yes Vital Signs & Weight: Vital Signs (12 hours) Temp Pulse Resp BP Pulse Ox 01/11/17 07:17 110 H 178/101 H 01/11/17 07:15 134 H 22 H 100 01/11/17 06:00 27 H 01/11/17 04:00 98.7 F 18 01/11/17 02:18 110 H 19 96 01/11/17 02:00 16 01/11/17 00:00 98.8 F 26 H 01/10/17 22:06 105 H 16 97 01/10/17 22:00 18 Weight Admit Weight 197 lb Weight 188 lb 0.869 oz Most Recent Monitor Data Heart Rate from ECG 139 NIBP 159/91 NIBP BP-Mean 108 Respiration from ECG 27 SpO2 92 I&O: 01/10/17 01/11/17 01/12/17 06:59 06:59 06:59 Intake Total 1023.6 2558 Output Total 4255 4535 Balance -3231.4 Result Diagrams: 01/11/17 03:45 01/11/17 07:25 Radiology Reviewed by me: Yes EKG Reviewed by me: Yes Phys Exam - Physical Examination very anxiosu, agitated, thrashing HEENT: PERRLA, moist MMs, sclera anicteric, oral pharynx no lesions Neck: no nodes, no JVD, supple, full ROM Respiratory: no wheezing, no rhonchi bilateral posterior and basilar rales Cardiovascular: no significant murmur, no rub tachycardic Gastrointestinal: soft, non-tender, no distention, positive bowel sounds Musculoskeletal: pulses present, edema present Neurological: non-focal, normal sensation, moves all 4 limbs Lymphatic: no nodes Skin: normal turgor, cap refill <2 seconds Deviation from normal: ischemic changed improving, wounds clean and healing Dx/Plan (1) Septic shock Code(s): A41.9 - SEPSIS, UNSPECIFIED ORGANISM; R65.21 - SEVERE SEPSIS WITH SEPTIC SHOCK Status: Acute Comment: WBC down to 9.7. CCM at present, should be able ot stop abx soon (2) Acute kidney failure Status: Acute Qualifiers: Acute renal failure type: with acute tubular necrosis Qualified Code(s): N17.0 - Acute kidney failure with tubular necrosis Comment: nephrology following. malachi RIVERA. Cr down to 2.67 today, improving daily, UOP picking up (3) Acute respiratory failure Code(s): J96.00 - ACUTE RESPIRATORY FAILURE, UNSP W HYPOXIA OR HYPERCAPNIA Status: Acute Qualifiers: Respiratory failure complication: hypoxia Qualified Code(s): J96.01 - Acute respiratory failure with hypoxia Comment: On mechanical ventilation, per pulm. Trached 01/09. Pt more confortable. Vent weaning per pulm, planning TC trial today (4) DIC (disseminated intravascular coagulation) Code(s): D65 - DISSEMINATED INTRAVASCULAR COAGULATION Status: Acute Comment : due to severe sepsis. SLowly resolving. some post op trach bleeding, as expected. PEG site intact. h/H trendign pedro, likely from recent procedures (5) Hypokalemia Code(s): E87.6 - HYPOKALEMIA Status: Acute Comment: replace per ICU protocol , 3.5 today. (6) Metabolic acidosis Code(s): E87.2 - ACIDOSIS Status: Resolved (7) Thrombocytopenia Code(s): D69.6 - THROMBOCYTOPENIA, UNSPECIFIED Status: Acute Comment: secondary to sepsis/DIC.heparin products discontinued. Increasing slowly, no s/ Sx bleed. 58K today (8) Transaminitis Code(s): R74.0 - NONSPEC ELEV OF LEVELS OF TRANSAMNS & LACTIC ACID DEHYDRGNSE Status: Resolved Comment: due to sepsis (9) Volume overload Code(s): E87.70 - FLUID OVERLOAD, UNSPECIFIED Status: Acute Comment: secondary to rescusitation for sepsis and renal failure. Improving with improved renal function - Plan cont current plan of care, continue antibiotics, PT/OT, respiratory therapy, DVT proph w/SCDs * .
[2017-01-11] MEDS ORDERED: Morphine 10 MG/ML VIAL SLOW IVP PRN (10:24)
[2017-01-11] MEDS: HYDROcodone/Acetaminophen 7.5/325 mg Tablet PO PRN ×2 (13:48→20:22)
[2017-01-11] MEDS ORDERED: Amlodipine 5 MG TAB PO SCH (15:00)
--- NOTE | 2017-01-11 17:39 | PRG ---
DATE OF SERVICE: 01/11/2017 SUBJECTIVE: Ms. Rowe did well overnight. She is on trach collar today. When she is anxio us, her heart rate kicks up. When she is calm, her heart rate is around 100. She is in sinus rhyth m. OBJECTIVE: VITAL SIGNS: Blood pressure has been mildly elevated 174/107, respiratory rate is in the teens. NECK: She has had minimal bleeding around her tracheostomy. LUNGS: Clear anteriorly. HEART: Regular rhythm. ABDOMEN: Soft. IMPRESSION AND PLAN: Status post clinical sepsis. Extremities are still discolored, but there all warm and all of her toes are warm. Also explained to the mother, I hope that she just ends up sloug dina some skin. The only relatively acute issue is her elevated blood pressure. We will place her on Norvasc to see if this helps control her blood pressure today. Her renal funct ion continues to improve. Her creatinine is now down to 2.6. Her anemia is stable with a hemoglobin of 7.7, which is 9.5 two days ago. She continues to tolerate negative fluid balance with her being negative 1977 over the last 24 hours .
--- NOTE | 2017-01-11 17:49 | PRG ---
DATE OF SERVICE: 01/11/2017 SUBJECTIVE: Seen and examined. Alert, in much better spirit. Noted with the following vital signs . PHYSICAL EXAMINATION: VITAL SIGNS: Afebrile, blood pressure 166/111 with a pulse of 114, O2 sat of 99%. HEENT: Remarkable for tracheostomy tube in place. CARDIOVASCULAR SYSTEM: First and second heart sounds were heard, tachycardic. RESPIRATORY SYSTEM: Revealed vented sounds. DIGESTIVE SYSTEM: Revealed a benign abdomen with positive bowel sounds with PEG tube site is clean. EXTREMITIES: Improved peripheral edema. NEUROLOGIC: Alert, no lateralizing signs. LYMPHATICS: No peripheral lymphadenopathy. LABORATORY INVESTIGATION: Showed a hemoglobin of 7.5, platelet of 58,000. Chemistry showed a creat inine of 2.67 with BUN of 70, bicarbonate of 30, potassium 3.5 and sodium of 145. IMPRESSION: 1. Acute tubular necrosis, improving. 2. Hypervolemia responding to diuretics. 3. Sepsis/multiorgan failure, improving. 4. Anemia of multifactorial etiology. PLAN: 1. Deescalate diuretics. Therefore, we will discontinue current IV diuretics and transition over t o oral diuretics. 2. Continue erythropoiesis stimulating agent and transfuse on p.r.n. basis. 3. Renal supportive measures. 4. Avoid potentially nephrotoxic agents. 5. Further management to be dependent on the clinical course.
[2017-01-12] MEDS: Meropenem 1 GM, IV Admixture Fee-Chemo 1 UNITS in Sterile Water 20 ML SLOW IVP SCH (02:10)
[2017-01-12] MEDS: Potassium Chloride 40 MEQ in Dextrose 5% in Water 1,000 ML IV SCH ×4 (02:11→22:08)
[2017-01-12] MEDS: HYDROcodone/Acetaminophen 7.5/325 mg Tablet PO PRN ×3 (04:13→19:42)
[2017-01-12] MEDS: Furosemide 40 MG/4 ML VIAL SLOW IVP SCH ×2 (05:27→13:25)
[2017-01-12 05:48] LABS: Anion Gap 16 mmol/L (10-20); BUN (Urea Nitrogen) 64 mg/dL (7.0-18.7); Calc. Creatinine Clearance 41 mL/min (70-130); Calcium 8.3 mg/dL (7.8-10.44); Carbon Dioxide 27 mmol/L (22-29); Chloride 102 mmol/L (98-107); Estimated GFR-MDRD 22
[2017-01-12 05:53] LABS: Hematocrit 24.5 % (36.0-47.0); Mean Platelet Volume 9.3 fL (7.4-10.4); Neutrophil 76 % (42-75); Nucleated RBC 1 % (0); Red Blood Cell (RBC) Count 2.54 mill/uL (4.20-5.40); White Blood Cell (WBC) Count 12.2 thou/uL (4.8-10.8)
--- NOTE | 2017-01-12 07:50 | PRG ---
DATE OF SERVICE: 01/12/2017 Ms. Rowe is smiling this morning. She is in no distress. PHYSICAL EXAMINATION: VITAL SIGNS: Blood pressure 155/92, heart rate 115-120, respiratory rate 20, oximetry is 98. LUNGS: Clear anteriorly. HEART: Regular rhythm. ABDOMEN: Soft. LABORATORY DATA: White count 12.2, hemoglobin 7.9, platelets 79,000. Sodium 142, potassium 3.1, ch loride 102, bicarb 27, BUN 64, creatinine 2.46. Intake and output is negative 2954. Her digits are unchanged. She starting to sluff some skin in some areas, but her fingers and toes r emain warm. IMPRESSION: 1. Status post clinical sepsis felt to be most likely secondary to Pneumococcus after a viral illne ss. 2. Acute kidney injury/acute tubular necrosis associated with sepsis, clinically and by labwork imp roving in spite of diuresis. 3. Volume overload secondary to volume resuscitation of her sepsis, improving with diuresis. Will continue to give her the Lasix as long as her renal function does not suffer. 4. Digital ischemia secondary to sepsis and her high dose pressors. 5. Thrombocytopenia secondary to sepsis, not felt to be heparin induced thrombocytopenia. 6. Mild hyperglycemia. Need to cut her steroids back. 7. Severe anxiety. 8. 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 9. History of major life stress as a child. PLAN: Discontinue her IV antimicrobial therapy. She has a PEG and a trachea in, will start her on enteral antibiotics at this time. She appears to be improving. She is stable on a trach collar.
[2017-01-12] MEDS: Amlodipine 5 MG TAB PO SCH (08:20)
[2017-01-12] MEDS: clonazePAM 0.5 MG TAB PO SCH ×3 (08:21→19:43)
[2017-01-12] MEDS: Pantoprazole 40 MG GRANULES PACKET PER TUBE SCH (08:21)
[2017-01-12] MEDS: Enoxaparin Sodium 30 MG/0.3 ML SYRINGE SC SCH (08:22)
[2017-01-12] MEDS: Haloperidol Lactate 5 MG/ML VIAL IM PRN ×2 (08:23→13:21)
[2017-01-12] MEDS: Potassium Chloride 20 MEQ TAB PO SCH ×2 (08:45→16:08)
[2017-01-12] MEDS: Doxycycline 100 MG CAP PO SCH ×2 (10:42→19:43)
--- NOTE | 2017-01-12 13:16 | PDOC.PN ---
- Subjective Encounter Start Date: 01/12/17 Encounter Start Time: 11:15 Subjective: is sitting in chair -: has trach collar - Objective MAR Reviewed: Yes Vital Signs & Weight: Vital Signs (12 hours) Temp Pulse Resp Pulse Ox 01/12/17 11:00 98.3 F 01/12/17 10:50 126 H 32 H 99 01/12/17 08:20 115 H 01/12/17 08:00 98.1 F 115 H 26 H 97 01/12/17 07:32 115 H 25 H 96 01/12/17 04:00 98.3 F 01/12/17 03:06 134 H 32 H 98 Weight Admit Weight 197 lb Weight 188 lb 0.869 oz Most Recent Monitor Data Heart Rate from ECG 113 NIBP 178/96 NIBP BP-Mean 141 Respiration from ECG 23 SpO2 98 I&O: 01/11/17 01/12/17 01/13/17 06:59 06:59 06:59 Intake Total 2558 2561 340 Output Total 7414 5515 1675 [employer] -[id number] -1330 Result Diagrams: 01/12/17 05:10 01/12/17 05:10 Phys Exam - Physical Examination HEENT: PERRLA Neck: no JVD trach+ Respiratory: no wheezing rhonchi+ Cardiovascular: RRR, no significant murmur Gastrointestinal: soft, no distention, positive bowel sounds peg+ tip of her digits (multiple) has ischemic changes Neurological: moves all 4 limbs moves left extr freely than right Dx/Plan (1) Acute kidney failure Status: Acute Qualifiers: Acute renal failure type: with acute tubular necrosis Qualified Code(s): N17.0 - Acute kidney failure with tubular necrosis (2) Acute respiratory failure Code(s): J96.00 - ACUTE RESPIRATORY FAILURE, UNSP W HYPOXIA OR HYPERCAPNIA Status: Acute Qualifiers: Respiratory failure complication: hypoxia Qualified Code(s): J96.01 - Acute respiratory failure with hypoxia Comment: Trached 01/09 and currently on collar (3) DIC (disseminated intravascular coagulation) Code(s): D65 - DISSEMINATED INTRAVASCULAR COAGULATION Status: Acute Comment : due to severe sepsis. (4) Sepsis Code(s): A41.9 - SEPSIS, UNSPECIFIED ORGANISM Status: Acute Qualifiers: Sepsis type: sepsis due to unspecified organism Qualified Code(s): A41.9 - Sepsis, unspecified organism Comment: Unknown source (5) Thrombocytopenia Code(s): D69.6 - THROMBOCYTOPENIA, UNSPECIFIED Status: Acute (6) Volume overload Code(s): E87.70 - FLUID OVERLOAD, UNSPECIFIED Status: Acute Comment: secondary to rescusitation for sepsis and renal failure. Improving with improved renal function - Plan is on doxy, steroids iv daily and nebs -: PT to exercise as tolerated -: watch for digit necrosis/superinfection -: is severely deconditioned, will need placement once stable here -: iv lasix for vol overload, peg feeding to be initiated * . Review of Systems - Medications/Allergies Allergies/Adverse Reactions: Allergies Allergy/AdvReac Type Severity Reaction Status Date / Time alprazolam Allergy Verified 01/01/17 21:54 cephalexin Allergy itching Verified 01/01/17 21:54 ciprofloxacin Allergy itching Verified 01/01/17 21:54 diphenhydramine Allergy Verified 01/01/17 12:22 [From Benadryl] mirtazapine Allergy Verified 01/01/17 21:54 ondansetron Allergy Verified 01/01/17 12:22 [From Zofran (as hydrochloride)] peanut Allergy Verified 01/01/17 21:54 rizatriptan Allergy Verified 01/01/17 21:54 sumatriptan [From Imitrex] Allergy Verified 01/01/17 12:21 Medications: Current Medications Acetaminophen (Tylenol) 650 mg PO Q6H PRN PRN Reason: Fever > 101 Last Admin: 01/04/17 17:40 Dose: 650 mg Hydrocodone Bitart/Acetaminophen (Terrell 7.5/325) 1 tab PO Q4H PRN PRN Reason: Mild Pain (1-3) Last Admin: 01/12/17 04:13 Dose: 1 tab Albuterol/Ipratropium (Duoneb) 3 ml IPPB [id number] KYLE Last Admin: 01/12/17 10:50 Dose: 3 ml Amlodipine Besylate (Norvasc) 5 mg PO DAILY [facility] Last Admin: 01/12/17 08:20 Dose: 5 mg Lipase/Protease/[place]ylase ([place] [id number]) 1 cap FS .PER PROTOCOL PRN PRN Reason: TUBE OCCLUSION PROTOCOL Clonazepam (Klonopin) 0.5 mg PO TID [facility] Last Admin: 01/12/17 08:21 Dose: 0.5 mg Doxycycline Hyclate (Vibramycin) 100 mg PO BID [facility] Stop: 01/14/17 23:59 Last Admin: 01/12/17 10:42 Dose: 100 mg Enoxaparin Sodium (Lovenox) 30 mg SC 0900 [facility] Last Admin: 01/12/17 08:22 Dose: 30 mg Furosemide (Lasix) 40 mg SLOW IVP 0600,1400 [facility] Last Admin: 01/12/17 05:27 Dose: 40 mg Haloperidol Lactate (Haldol) 10 mg IM Q4H PRN PRN Reason: Agitation Last Admin: 01/12/17 08:23 Dose: 10 mg Potassium Chloride 40 meq/ (Dextrose/Water) 1,020 mls @ 50 mls/hr IV .[id number] [facility] Last Admin: 01/12/17 02:11 Dose: 1,020 mls Lorazepam (Ativan) 1 mg SLOW IVP Q2H PRN PRN Reason: Anxiety to achieve Mack 2-3 Stop: 01/31/17 14:11 Last Admin: 01/11/17 22:04 Dose: 1 mg Methylprednisolone Sodium Succinate (Solu-Medrol) 20 mg IVP DAILY [facility] Last Admin: 01/12/17 08:23 Dose: 20 mg Mineral Oil/White Petrolatum (Lacri-Lube Ointment) 0 gm EA EYE PRN PRN PRN Reason: Dry Eyes Last Admin: 01/04/17 21:07 Dose: 1 applic Pantoprazole Sodium (Protonix) 40 mg PER TUBE DAILY [facility] Last Admin: 01/12/17 08:21 Dose: 40 mg Potassium Chloride (K-Dur) 40 meq PO BID[facility] Stop: 01/12/17 20:00 Last Admin: 01/12/17 08:45 Dose: 40 meq Sodium Bicarbonate (Bicarbonate, Sodium) 650 mg PER TUBE .PER PROTOCOL PRN PRN Reason: ENTERAL TUBE OCCLUSION Sodium Chloride (Flush - Normal Saline) 10 ml IVF Q12HR [facility] Last Admin: 01/12/17 08:31 Dose: 10 ml Sodium Chloride (Flush - Normal Saline) 10 ml IVF PRN PRN PRN Reason: Saline Flush
--- NOTE | 2017-01-12 15:59 | EKG ---
Test Reason : Blood Pressure : / mmHG Vent. Rate : 132 BPM Atrial Rate : 132 BPM P-R Int : 128 ms QRS Dur : 072 ms QT Int : 310 ms P-R-T Axes : 071 066 -84 degrees QTc Int : 459 ms Sinus tachycardia Abnormal ECG When compared with ECG of 01-JAN-2017 09:07, (Unconfirmed) Nonspecific T wave abnormality now evident in Inferior leads Confirmed by DR. Kesha HAM ([id number]) on 01/12/2017 3:58:51 PM Referred By: GERALD Confirmed By:DR. Kesha HAM
[2017-01-12] MEDS: Nystatin Powder 15 GM BOT TOP SCH (22:11)
[2017-01-12] MEDS: Lorazepam 2 MG/ML VIAL SLOW IVP PRN (22:19)
[2017-01-13 05:02] LABS: Hematocrit 27.4 % (36.0-47.0); Mean Platelet Volume 9.4 fL (7.4-10.4); Red Blood Cell (RBC) Count 2.86 mill/uL (4.20-5.40); White Blood Cell (WBC) Count 13.9 thou/uL (4.8-10.8)
[2017-01-13 05:10] LABS: Anion Gap 16 mmol/L (10-20); BUN (Urea Nitrogen) 65 mg/dL (7.0-18.7); Calc. Creatinine Clearance 44 mL/min (70-130); Calcium 8.6 mg/dL (7.8-10.44); Carbon Dioxide 23 mmol/L (22-29); Chloride 103 mmol/L (98-107); Estimated GFR-MDRD 24; Magnesium 1.4 mg/dL (1.6-2.6)
[2017-01-13 05:16] LABS: Neutrophil 79 % (42-75)
[2017-01-13] MEDS: Furosemide 40 MG/4 ML VIAL SLOW IVP SCH (05:27)
[2017-01-13] MEDS: Haloperidol Lactate 5 MG/ML VIAL IM PRN (05:28)
[2017-01-13] MEDS: HYDROcodone/Acetaminophen 7.5/325 mg Tablet PO PRN (08:39)
[2017-01-13] MEDS: Amlodipine 5 MG TAB PO SCH (08:44)
[2017-01-13] MEDS: clonazePAM 0.5 MG TAB PO SCH (08:44)
[2017-01-13] MEDS: Pantoprazole 40 MG GRANULES PACKET PER TUBE SCH (08:44)
[2017-01-13] MEDS: Doxycycline 100 MG CAP PO SCH (08:51)
[2017-01-13] MEDS: Nystatin Powder 15 GM BOT TOP SCH (08:52)
[2017-01-13] MEDS: Enoxaparin Sodium 30 MG/0.3 ML SYRINGE SC SCH (08:53)
[2017-01-13 08:55] VITALS: BP 160/102
[2017-01-13] MEDS ORDERED: Furosemide 20 MG TAB PO SCH (09:00)
[2017-01-13] MEDS ORDERED: Furosemide 40 MG TAB PO SCH (09:00)
[2017-01-13 09:05] VITALS: TEMP 98.6
--- NOTE | 2017-01-13 11:43 | DIS ---
DATE OF ADMISISON: 01/01/2017 DATE OF DISCHARGE: 01/13/2017 PRIMARY CARE PHYSICIAN: Dr. Sofia Bowles. DISCHARGE DISPOSITION: [facility] for further care. PRIMARY DISCHARGE DIAGNOSES: 1. Clinically septic shock. 2. Acute kidney failure, improving. 3. Acute respiratory failure. 4. Disseminated intravascular coagulation. 5. Hypokalemia. 6. Thrombocytopenia. 7. Volume overload. 8. Metabolic acidosis. 9. Abnormal liver function tests. 10. Status post tracheostomy and PEG tube placement. SECONDARY DISCHARGE DIAGNOSES: 1. Chronic low back pain. 2. Anxiety and depression. 3. Chronic obstructive pulmonary disease/asthma. 4. Peripheral neuropathy. PRIMARY PROCEDURE/OPERATION: Central line placement, endotracheal intubation and mechanical ventila tory support, tracheostomy, PEG tube placement. RADIOLOGICAL INVESTIGATION: Abdomen and pelvis CT scan on admission showed bilateral nephrolithiasi s without obstructive uropathy. When the patient was intubated, at that time, patient had several c hest x-rays. SIGNIFICANT LABORATORY DATA: On discharge, WBC 13.9, hemoglobin 8.8, platelet 105. INR 1.2. D-dim er greater than 20. Sodium 138, potassium 3.7, BUN 65, creatinine 2.29, calcium 8.6, magnesium 1.4. Urine drug screen on admission showed benzos, methamphetamine, tricyclic, and opiates positive. H epatitis profile negative. HIV negative. Streptococcal antigen in urine negative. Blood culture negative. Group A streptococcal culture negative, influenza negative. Virus panel negative. Stool for infection workup is negative. Urine culture negative. DISCHARGE MEDICATIONS: While in the hospital, patient is on following medication at this point. 1. Amlodipine 5 mg daily. 2. Tylenol 650 mg q.6 hours p.r.n. 3. Doxycycline 100 mg twice daily. 4. Lovenox 30 mg subcutaneous daily. 5. Lasix 40 mg b.i.d. 6. DuoNeb q.4 hours. 7. Protonix 40 mg per tube daily. 8. Solu-Medrol 20 mg IV daily. 9. Clonazepam 0.5 mg t.i.d. HOME MEDICATIONS: The patient's home medication is Cymbalta, Flexeril, Fiorinal, Tylenol #3, Singul air, Lyrica, Inderal, Zonegran, trazodone. ALLERGIES: ALPRAZOLAM, CEPHALEXIN, CIPROFLOXACIN, BENADRYL. CONTRAINDICATIONS: None. CODE STATUS: FULL CODE. INPATIENT CONSULTANTS: 1. Dr. Schwartz was managing ventilator. 2. Dr. Kinsey was consulted for trach and PEG. 3. Dr. Jimenes was the kidney doctor. 4. Dr. Hopson was ID doctor. TEST RESULTS PENDING ON DISCHARGE: None. DISCHARGE PLAN: Post hospital, the patient is discharged to [facility] for insurance reason and patient will follow up with primary team there and they will continue to manage until dis charge. HOSPITAL COURSE: A 41-year-old female who was admitted by Dr. Dorman on 01/01/2017. Patient was di agnosed with septic shock. She was admitted in ICU. She required intubation. She had a prolonged intubation and required tracheostomy and PEG tube placement. She was given broad spectrum antibioti c therapy. Surprisingly, all cultures remain negative. This patient was having DIC panel positive. She was having multiorgan failure type of picture while in hospital. Her renal function is improv ing. She had fluid overload status and that is also improving with diuresis. Initially, the patient was unstable and that is why she remained in hospital, but now the patient is stable. Dr. Garza cleared her to go to [facility]. This patient has [facility] Health plan and that is why today I spoke with Dr. Riggs about this patient and detailed description was sarthak mclean about this patient's presentation. Today was my first day with this patient and it took me severa l minutes to review her chart as well and I initiated discharge process. The patient was seen and examined at bedside today. Family and patient is okay with transferring to [facility]. Pulmonary cleared her for transfer as well and [facility] also accepted to [facility] as well. PHYSICAL EXAMINAITON: VITAL SIGNS: Currently, blood pressure 145/97, pulse 111, respiratory rate 26. GENERAL: The patient is currently alert, awake and follows commands. HEAD: Normocephalic, atraumatic. Tracheostomy in place with the tracheostomy collar. Central line in place. LUNGS: Lungs clear to auscultation without any rhonchi. CARDIAC: S1, S2 regular, tachycardia. ABDOMEN: PEG tube in place. GENITALIA: Steel catheter in place. EXTREMITIES: No edema. The patient does have digital skin necrosis and that is why the patient lef t and discovered with the dressing. Overall, the patient is medically stable for discharge back to [facility] for further care. Total time spent on discharge day more than 30 minutes.
--- NOTE | 2017-01-13 11:52 | PRG ---
DATE OF SERVICE: 01/13/2017 SUBJECTIVE: The patient is awake, alert, and is sitting up in a chair. She is scheduled to be morris sferred to [facility] today where she has insurance. PHYSICAL EXAMINATION: VITAL SIGNS: Temperature is 98.5, pulse 101, blood pressure 163/94, 24-hour intake 3172, output 417 0. HEENT: Unremarkable. NECK: No JVD. Trach in place with some mucoid secretions. LUNGS: Coarse rhonchi. CARDIOVASCULAR: S1 and S2 regular. ABDOMEN: Soft and nontender. EXTREMITIES: She has changes over her toes, lower portion of her foot and over her hands from skin ischemia from Levophed and septic shock. Apparently these changes are improved. LABORATORY DATA: Sodium 130, potassium 3.7, chloride 103, CO2 23, BUN 65, creatinine 2.3, glucose 1 01. Magnesium 1.4. White blood cell count 13.9, hemoglobin 8.8, hematocrit 27.4, platelet count 10 5. ASSESSMENT: 1. Status post sepsis, most likely secondary to pneumococcal pneumonia after a viral illness. 2. Acute kidney injury which is improving. 3. Volume overload secondary to fluid resuscitation. Her Lasix is being decreased. 4. Digital ischemia secondary to sepsis, and vasopressors -- this is apparently improving. 2. Thrombocytopenia, which is improving. 3. Mild hyperglycemia. 4. Anxiety 5. Catatonic depression in the past. PLAN: 1. Her IV antibiotics have been stopped because of diarrhea. C. diff was sent yesterday, but the re sult is pending. We will go ahead and insert a rectal tube. 2. I have deemed her stable for transfer to [facility]. It is assumed that she is going to mo ed prolonged rehabilitation. I have instructed the nurses here to take photos of her wounds prior t o transfer, so that we can have this documented.
--- NOTE | 2017-01-13 19:50 | EKG ---
Test Reason : Blood Pressure : / mmHG Vent. Rate : 121 BPM Atrial Rate : 121 BPM P-R Int : 000 ms QRS Dur : 086 ms QT Int : 426 ms P-R-T Axes : 051 042 055 degrees QTc Int : 604 ms Sinus tachycardia Abnormal ECG Confirmed by RAMAN SERRANO D.O. ([id number]), science editor EBER ARAIZA ([id number]) on 01/13/2017 7:50:14 PM Referred By: Confirmed By:RAMAN SERRANO D.O.
--- NOTE | 2017-01-13 23:47 | PRG ---
DATE OF SERVICE: 01/13/2017 SUBJECTIVE: The patient was seen and examined, still trached, noted with the following vital signs. OBJECTIVE VITAL SIGNS: Blood pressure 149/97, respiratory rate of 26, pulse 110, O2 sat of 99%. HEENT: Unremarkable. CARDIOVASCULAR SYSTEM: First and second heart sounds were heard, tachycardic. RESPIRATORY SYSTEM: Reveals some transmitted sounds. DIGESTIVE SYSTEM: Revealed a benign abdomen. EXTREMITIES: Resolved peripheral edema. LABORATORY INVESTIGATIONS: Significant for hemoglobin of 8.8 with a white count of 13,900. Hydrogen Operator ry showed a creatinine down to 2.29 with BUN of 65. Magnesium 1.4. IMPRESSION: 1. Acute tubular necrosis, maintaining sustained clinical improvement. 2. Hypomagnesemia. 3. Hypokalemia, resolved. PLAN: 1. Continue renal supportive measures. 2. Deescalate diuresis. Therefore, we discontinued the IV diuretics and switch over to oral diuret ics. 3. Further management to be dependent on the clinical course.
== END 2017-01-13 11:24 | disposition short-term general hospital (02) | DRG 4 ==
LOC: ERS 08:55 → CCU 11:12
PROVIDERS: ADMIT Internal Medicine Addiction Medicine; ATTEND Internal Medicine Addiction Medicine
PROC: 5A1955Z Respiratory Ventilation, Greater than 96 Consecutive Hours (ICD-10-PCS; 2017-01-01)
PROC: 04HL33Z Insertion of Infusion Device into Left Femoral Artery, Percutaneous Approach (ICD-10-PCS; 2017-01-01)
PROC: 0BJ08ZZ Inspection of Tracheobronchial Tree, Via Natural or Artificial Opening Endoscopic (ICD-10-PCS; 2017-01-01)
PROC: 0BH17EZ Insertion of Endotracheal Airway into Trachea, Via Natural or Artificial Opening (ICD-10-PCS; 2017-01-01)
PROC: 02HV33Z Insertion of Infusion Device into Superior Vena Cava, Percutaneous Approach (ICD-10-PCS; 2017-01-01)
PROC: 0B110F4 Bypass Trachea to Cutaneous with Tracheostomy Device, Open Approach (ICD-10-PCS; principal; 2017-01-09)
PROC: 0DH63UZ Insertion of Feeding Device into Stomach, Percutaneous Approach (ICD-10-PCS; 2017-01-09)
DX: A40.3 Sepsis due to Streptococcus pneumoniae (principal); J96.01 Acute respiratory failure with hypoxia; D65 Disseminated intravascular coagulation [defibrination syndrome]; E87.2 Acidosis; N17.0 Acute kidney failure with tubular necrosis; R65.21 Severe sepsis with septic shock; E87.3 Alkalosis; D69.6 Thrombocytopenia, unspecified; E87.0 Hyperosmolality and hypernatremia; E83.42 Hypomagnesemia; R13.10 Dysphagia, unspecified; F79 Unspecified intellectual disabilities; I10 Essential (primary) hypertension; E87.6 Hypokalemia; R73.9 Hyperglycemia, unspecified; F41.9 Anxiety disorder, unspecified; D64.9 Anemia, unspecified; T50.2X5A Adverse effect of carbonic-anhydrase inhibitors, benzothiadiazides and other diuretics, initial encounter; E87.70 Fluid overload, unspecified; I99.8 Other disorder of circulatory system; F32.9 Major depressive disorder, single episode, unspecified; G62.9 Polyneuropathy, unspecified; J44.9 Chronic obstructive pulmonary disease, unspecified; R74.0 Nonspecific elevation of levels of transaminase and lactic acid dehydrogenase [LDH]; Z68.39 Body mass index [BMI] 39.0-39.9, adult
CPT/HCPCS: 36415; 36416; 36556; 71010; 74176; 80048; 80053; 80069; 80074; 80076; 80306; 80307; 81003; 81015; 82330; 82533; 82553; 82570; 82803; 82805; 83605; 83735; 83970; 84100; 84300; 84443; 84484; 84702; 85007; 85025; 85027; 85049; 85060; 85300; 85362; 85379; 85384; 85610; 85652; 85730; 86060; 86140; 87015; 87040; 87045; 87046; 87081; 87086; 87324; 87389; 87430; 87449; 87633; 87899; 93005; 93010; 94002; 94003; 94640; 94660; 96361; 96365; 96368; 96374; A4216; A4353; C9113; J0692; J1100; J1630; J1650; J1940; J2060; J2185; J2250; J2270; J2405; J2543; J2704; J2920; J3010; J3370; J3475; J3480; J7050; J7070; J7620; P9047; Q4081; S0020